=== PATIENT | female | born 1940 | race Caucasian/White ===

== ENCOUNTER 2017-08-25 21:39 | Inpatient (IN) | payer OTHER ==
[~2017-08-25] VITALS: Ht 154.9 cm; Wt 60.6 kg
[2017-08-25] MEDS ORDERED: FRS/40 PO (22:58)
[2017-08-25] MEDS ORDERED: LORA-741 PO (22:58)
[2017-08-25] MEDS ORDERED: TPRSR50 PO (22:58)
[2017-08-25] MEDS ORDERED: [UNRECOGNIZED DRUG - CODE] PO (22:58)
[2017-08-25] MEDS ORDERED: AMLO-114 PO (22:58)
--- NOTE | 2017-08-25 23:05 | EMERGENCY ROOM VISIT NOTE ---
History Report prepared by Too: Violette Masno Under the Supervision of: Dr. Alonzo Arreguin M.D. First contact with patient: 22:47 Chief Complaint: OTHER COMPLAINT Stated Complaint: WHEEZING, SWELLING OF LEGS; PARKINSONS History of Present Illness The patient is a 77 year old female who presents to the Emergency Room with complaints of swelling in her ankles beginning tonight. Per her family, the patient has had swelling in her legs for the last 4 weeks, and has recently had her blood pressure medication changed. Per her family, the patient has also been wheezing lately. The patient states that she is on Lasix and that she takes it twice daily. She denies headaches, neck pain, shortness of breath, chest pain, and abdominal pain. The patient denies a history of blood clots, and DVT's. The patient's family notes that her symptoms acutely worsened 48 hours ago. Source of History: patient, family Onset: tonight Position: ankle (bilateral) Quality: other (swelling) Associated Symptoms: + cough (wheezing), No headache, No neck pain, No chest pain, No SOB, No abdominal pain Review of Systems See HPI for pertinent positives & negatives. A total of 10 systems reviewed and were otherwise negative. Past Medical & Surgical Medical Problems: (1) Hypertension Family History No pertinent family history stated. Social History Smoking Status: Never Smoker Occupation Status: retired Current/Historical Medications Scheduled Amlodipine (Norvasc), 10 MG PO DAILY Furosemide (Lasix), 40 MG PO QAM Levodopa/Carbidopa (Carbidopa/Levodopa 10-100 mg), 1 TAB PO TID Lorazepam (Ativan), 0.5 MG PO HS Metoprolol Succinate (Metoprolol Succinate ER), 50 MG PO DAILY Allergies Coded Allergies: No Known Allergies (Unverified , 08/25/17) Physical Exam Vital Signs Date Time Temp Pulse Resp B/P (MAP) Pulse Ox O2 Delivery O2 Flow Rate FiO2 08/26/17 01:24 68 20 131/59 94 Room Air 08/25/17 23:55 68 20 137/78 97 Room Air 08/25/17 22:44 72 08/25/17 21:55 37.2 64 20 145/96 93 Room Air Physical Exam GENERAL: Patient is elderly appearing and in no acute distress. HEENT: No acute trauma, normocephalic atraumatic, mucous membranes moist, no nasal congestion, no scleral icterus. NECK: No stridor, no adenopathy, no meningismus, trachea is midline. LUNGS: Mild crackles and rales in the bilateral lower lungs. HEART: Regular rate and rhythm. No murmurs, rubs, gallops appreciated. ABDOMEN: Soft, nontender, bowel sounds positive, no masses appreciated, no peritonitis. BACK: No midline tenderness, no CVA tenderness EXTREMITIES: Normal motion all extremities, no cyanosis. 3+ pitting edema bilateral lower legs. NEUROLOGIC: Alert and oriented, no acute motor or sensory deficits, no focal weakness, cranial nerves grossly intact. Movement in face consistent with Parkinson's Disease. SKIN: No rash, no jaundice, no diaphoresis. Medical Decision & Procedures ER Provider Diagnostic Interpretation: X ray results are stated below per my interpretation. Chest X-Ray 1 view: Mild congestive finding bilaterally. Large heart. No pleural effusion. No infiltrate. No pneumothorax. Radiology results and stated below per my review and [facility]. US VENOUS BILATERAL LOWER EXTREMITIES: No evidence of deep vein thrombosis. Edema noted within the subcutaneous soft tissues. Laboratory Results 08/25/17 23:25 Red Blood Count 4.59, Mean Corpuscular Volume 88.7, Mean Corpuscular Hemoglobin 27.2, Mean Corpuscular Hemoglobin Concent 30.7, Mean Platelet Volume 10.4, Neutrophils (%) (Auto) 64.8, Lymphocytes (%) (Auto) 18.3, Monocytes (%) (Auto) 15.0, Eosinophils (%) (Auto) 1.1, Basophils (%) (Auto) 0.5, Neutrophils # (Auto ) 4.23, Lymphocytes # (Auto) 1.19, Monocytes # (Auto) 0.98, Eosinophils # (Auto ) 0.07, Basophils # (Auto) 0.03 08/25/17 23:25 Test 08/25/17 23:25 White Blood Count 6.52 K/uL (4.8-10.8) Red Blood Count 4.59 M/uL (4.2-5.4) Hemoglobin 12.5 g/dL (12.0-16.0) Hematocrit 40.7 % (37-47) Mean Corpuscular Volume 88.7 fL (80-100) Mean Corpuscular Hemoglobin 27.2 pg (25-34) Mean Corpuscular Hemoglobin Concent 30.7 g/dl (32-36) Platelet Count 227 K/uL (130-400) Mean Platelet Volume 10.4 fL (7.4-10.4) Neutrophils (%) (Auto) 64.8 % Lymphocytes (%) (Auto) 18.3 % Monocytes (%) (Auto) 15.0 % Eosinophils (%) (Auto) 1.1 % Basophils (%) (Auto) 0.5 % Neutrophils # (Auto) 4.23 K/uL (1.4-6.5) Lymphocytes # (Auto) 1.19 K/uL (1.2-3.4) Monocytes # (Auto) 0.98 K/uL (0.11-0.59) Eosinophils # (Auto) 0.07 K/uL (0-0.5) Basophils # (Auto) 0.03 K/uL (0-0.2) RDW Standard Deviation 48.9 fL (36.4-46.3) RDW Coefficient of Variation 15.3 % (11.5-14.5) Immature Granulocyte % (Auto) 0.3 % Immature Granulocyte # (Auto) 0.02 K/uL (0.00-0.02) Prothrombin Time 11.1 SECONDS (9.0-12.0) Prothromb Time International Ratio 1.0 (0.9-1.1) Activated Partial Thromboplast Time 26.6 SECONDS (21.0-31.0) Partial Thromboplastin Ratio 1.0 Anion Gap 9.0 mmol/L (3-11) Est Creatinine Clear Calc Drug Dose 51.6 ml/min Estimated GFR () 89.3 Estimated GFR (Non- 77.1 BUN/Creatinine Ratio 23.9 (10-20) Calcium Level 9.0 mg/dl (8.5-10.1) Magnesium Level 2.5 mg/dl (1.8-2.4) Total Bilirubin 0.3 mg/dl (0.2-1) Direct Bilirubin < 0.1 mg/dl (0-0.2) Aspartate Amino Transf (AST/SGOT) 11 U/L (15-37) Alanine Aminotransferase (ALT/SGPT) 15 U/L (12-78) Alkaline Phosphatase 92 U/L (45-117) Troponin I 0.046 ng/ml (0-0.045) Pro-B-Type Natriuretic Peptide 512 pg/ml (0-1800) Total Protein 7.2 gm/dl (6.4-8.2) Albumin 3.8 gm/dl (3.4-5.0) Laboratory results as reviewed by me. ECG Indication: weakness Rate (beats per minute): 73 Rhythm: normal sinus Findings: no acute ischemic change, no ectopy, other (poor baseline) ED Course 2300: The patient was evaluated in room A4B. A complete history and physical exam was performed. 0040: I checked on the patient and updated her on her results. 0145: Discussed the patient's case with Dr. Sorenson. The patient will be evaluated for further treatment and disposition. 0155: Upon reevaluation, the patient is resting. Discussed results and treatment plan with the patient. She verbalized understanding and agreement with the treatment plan. The patient will be evaluated for further management. Medical Decision Differential: DVT, CHF, Infectious, Lymphedema, Idiopathic, Trauma, amongst other pathologies entertained. 77 yr old female arrives for evaluation of bilateral leg edema. Worsening over last 4 weeks despite increasing lasix dosing to 40mg BID, however last 48 hours with worsening SHOB and coughing. Mild congestive failure by lung exam and cxr without hypoxia. EKG without acute ischemia. Mild elevation in Troponin of uncertain significance, though with no renal insufficiency it may be acs related , though by no means is she actively infarcting by current symptoms nor EKG. No evidence of need for heparin at this time as trop may just be baseline for her. Regardless she has failed rapidly increasing Lasix dosing after last few weeks and has had no cardiac work-up for this. Will bring in for cardiac rule out as well as further work-up of CHF. Patient stable without complaints throughout ED stay. Medication Reconcilliation Current Medication List: was personally reviewed by me Blood Pressure Screening Patient's blood pressure: Elevated blood pressure will be monitored by hospitalist Consults Time Called: 0100 Consulting Physician: Dr. Sorenson[place] Returned Call: 0145 Discussed the patient's case. The patient will be evaluated for further treatment and disposition. Impression Primary Impression: Congestive heart failure Additional Impression: Elevated troponin Scribe Attestation The scribe's documentation has been prepared under my direction and personally reviewed by me in its entirety. I confirm that the note above accurately reflects all work, treatment, procedures, and medical decision making performed by me. Departure Information Dispostion Being Evaluated By Hospitalist Referrals No Doctor, Assigned (PCP) Patient Instructions My [facility] Problem Qualifiers
[2017-08-25 23:40] LABS: BASO % 0.5 %; BASO ABS # 0.03 K/uL (0-0.2); COMPLETE YES; EOS % 1.1 %; HEMATOCRIT 40.7 % (37-47); IG% 0.3 %; LYMPH % 18.3 %; LYMPH ABS # 1.19 K/uL (1.2-3.4); MEAN CELL VOLUME 88.7 fL (80-100); MEAN CORPUSCULAR HEMOGLOBIN 27.2 pg (25-34); MEAN CORPUSCULAR HGB CONC 30.7 g/dl (32-36); MEAN PLATELET VOLUME 10.4 fL (7.4-10.4); NEUT % 64.8 %; PLATELET COUNT 227 K/uL (130-400); RED BLOOD COUNT 4.59 M/uL (4.2-5.4); WHITE BLOOD COUNT 6.52 K/uL (4.8-10.8)
[2017-08-25 23:58] LABS: BLOOD UREA NITROGEN 18 mg/dl (7-18); BUN/CREATININE RATIO 23.9 (10-20); CARBON DIOXIDE 28 mmol/L (21-32); CHLORIDE 107 mmol/L (98-107); CREATININE 0.74 mg/dl (0.60-1.20); GLUCOSE 92 mg/dl (70-99); MAGNESIUM 2.5 mg/dl (1.8-2.4); POTASSIUM 4.4 mmol/L (3.5-5.1); SODIUM 144 mmol/L (136-145)
[2017-08-26] VITALS (8 sets, daily range): BP systolic 122–179; BP diastolic 59–79; PULSE 64–78; TEMP 36.6–37; O2SAT 90–97; Ht 154.9 cm; Wt 60.6 kg
[2017-08-26 01:36] LABS: PROTHROMBIN TIME (PATIENT) 11.1 SECONDS (9.0-12.0)
[2017-08-26 01:45] LABS: ALKALINE PHOSPHATASE 92 U/L (45-117); ALT/SGPT 15 U/L (12-78); AST/SGOT 11 U/L (15-37)
[2017-08-26] MEDS ORDERED: ACETAMINOPHEN 325 MG TAB PO PRN (02:00)
[2017-08-26] MEDS ORDERED: POLYETHYLENE (MIRALAX) 17 GM PACK PO PRN (02:00)
[2017-08-26] MEDS ORDERED: ALUMINUM/MAGNESIUM/SIMETH (MAALOX MAX) 30 ML UDC PO PRN (02:00)
[2017-08-26] MEDS ORDERED: ONDANSETRON INJ 2 MG/ML 2 ML VIAL IV PRN (02:00)
[2017-08-26] MEDS ORDERED: MoRPHine SULFATE 2 MG/ML CARP IV PRN (02:00)
[2017-08-26] MEDS ORDERED: NITROGLYCERIN 0.4 MG SL PER TAB CHARGE SL PRN (02:00)
--- NOTE | 2017-08-26 02:11 | History and Physical ---
History & Physical Date & Time of Service: Aug 26, 2017 at 02:10 Chief Complaint: Wheezing, Swelling Of Legs; Parkinsons Primary Care Physician: Valencia Marshall M.D. History of Present Illness Source: patient, family This is a 77 yo f with a history of HTN and parkinson's that is presenting to us with lower extremity edema and wheezing. According to the daughter the patient started to suffer from lower extremity edema approx two weeks prior. She was seen by her PCP and the patient's Lasix was increased to 40 mg bid. She has had an increase in urination according to the daughter but no improvement in the swelling. The patient then started to suffer from wheezing starting yesterday and because of concern for possible respiratory problems the daughter brought the patient in. The patient does have some baseline dementia and is a very poor historian but currently denies any pain. The daughter denies any history of heart attack or stroke but there is family history of SC. Non smoker but was exposed to second hand smoke via . Past Medical/Surgical History Medical Problems: (1) Hypertension Status: Chronic Family History FH: myocardial infarction Social History Smoking Status: Never Smoker Smokeless Tobacco Use: No Alcohol Use: none Drug Use: none Marital Status: Housing status: lives with family Occupational Status: retired Immunizations History of Influenza Vaccine: Unknown History of Tetanus Vaccine?: Unknown History of Pneumococcal: Unknown History of Hepatitis B Vaccine: Unknown Multi-Drug Resistant Organisms History of MDRO: No Allergies Coded Allergies: No Known Allergies (Unverified , 08/25/17) Home Medications Scheduled Amlodipine (Norvasc), 10 MG PO DAILY Furosemide (Lasix), 40 MG PO QAM Levodopa/Carbidopa (Carbidopa/Levodopa 10-100 mg), 1 TAB PO TID Lorazepam (Ativan), 0.5 MG PO HS Metoprolol Succinate (Metoprolol Succinate ER), 50 MG PO DAILY Review of Systems unable to complete meaningful ROS because of dementia Physical Exam Vital Signs Date Time Temp Pulse Resp B/P (MAP) Pulse Ox O2 Delivery O2 Flow Rate FiO2 08/26/17 01:24 68 20 131/59 94 Room Air 08/25/17 23:55 68 20 137/78 97 Room Air 08/25/17 22:44 72 08/25/17 21:55 37.2 64 20 145/96 93 Room Air General Appearance: no apparent distress Head: normocephalic, atraumatic Eyes: normal inspection ENT: normal ENT inspection Neck: supple Respiratory/Chest: no respiratory distress, no accessory muscle use, + decreased breath sounds (bilat bases) Cardiovascular: regular rate, rhythm, + systolic murmur (3/6) Abdomen/GI: normal bowel sounds, non tender, soft, + distended (mildly) Back: no CVA tenderness Extremities/Musculoskelatal: no calf tenderness, + pedal edema (+4 bilat) Neurologic/Psych: alert, + pertinent finding (oriented to self only, resting tremor; cogwheel rigidity bilat) Skin: normal color, warm/dry, no rash Lymphatic: no adenopathy Diagnostics Laboratory Results Results Past 24 Hours Test 08/25/17 23:25 Range/Units White Blood Count 6.52 4.8-10.8 K/uL Red Blood Count 4.59 4.2-5.4 M/uL Hemoglobin 12.5 12.0-16.0 g/dL Hematocrit 40.7 37-47 % Mean Corpuscular Volume 88.7 80-100 fL Mean Corpuscular Hemoglobin 27.2 25-34 pg Mean Corpuscular Hemoglobin Concent 30.7 32-36 g/dl Platelet Count 227 130-400 K/uL Mean Platelet Volume 10.4 7.4-10.4 fL Neutrophils (%) (Auto) 64.8 % Lymphocytes (%) (Auto) 18.3 % Monocytes (%) (Auto) 15.0 % Eosinophils (%) (Auto) 1.1 % Basophils (%) (Auto) 0.5 % Neutrophils # (Auto) 4.23 1.4-6.5 K/uL Lymphocytes # (Auto) 1.19 1.2-3.4 K/uL Monocytes # (Auto) 0.98 0.11-0.59 K/uL Eosinophils # (Auto) 0.07 0-0.5 K/uL Basophils # (Auto) 0.03 0-0.2 K/uL RDW Standard Deviation 48.9 36.4-46.3 fL RDW Coefficient of Variation 15.3 11.5-14.5 % Immature Granulocyte % (Auto) 0.3 % Immature Granulocyte # (Auto) 0.02 0.00-0.02 K/uL Prothrombin Time 11.1 9.0-12.0 SECONDS Prothromb Time International Ratio 1.0 0.9-1.1 Activated Partial Thromboplast Time 26.6 21.0-31.0 SECONDS Partial Thromboplastin Ratio 1.0 Sodium Level 144 136-145 mmol/L Potassium Level 4.4 3.5-5.1 mmol/L Chloride Level 107 98-107 mmol/L Carbon Dioxide Level 28 21-32 mmol/L Anion Gap 9.0 3-11 mmol/L Blood Urea Nitrogen 18 7-18 mg/dl Creatinine 0.74 0.60-1.20 mg/dl Est Creatinine Clear Calc Drug Dose 51.6 ml/min Estimated GFR () 89.3 Estimated GFR (Non- 77.1 BUN/Creatinine Ratio 23.9 10-20 Random Glucose 92 70-99 mg/dl Calcium Level 9.0 8.5-10.1 mg/dl Magnesium Level 2.5 1.8-2.4 mg/dl Total Bilirubin 0.3 0.2-1 mg/dl Direct Bilirubin < 0.1 0-0.2 mg/dl Aspartate Amino Transf (AST/SGOT) 11 15-37 U/L Alanine Aminotransferase (ALT/SGPT) 15 12-78 U/L Alkaline Phosphatase 92 45-117 U/L Troponin I 0.046 0-0.045 ng/ml Pro-B-Type Natriuretic Peptide 512 0-1800 pg/ml Total Protein 7.2 6.4-8.2 gm/dl Albumin 3.8 3.4-5.0 gm/dl Diagnostic Radiology Venous doppler negative CXR: mild pulmonary congestion, cardiomegaly; difficult to discern if enlarged right atria vs enlarged aorta EKG HR 73, no ectopic beats, no ischemic changes Normal EKG Impression Assessment and Plan This is a 77 yo f that is suffering from LE swelling, wheezing and elevated troponin. Considering the very large size of the heart and difficult to discern if the atria is enlarged vs aorta will order a CT chest to r/o aortic aneurysm. Elevated troponin; possible acute on chronic diastolic failure vs SC - Tele admission - troponin trend - echo in am - Lasix PO BID has been changed to IV - I&O, daily weights and ashby - consider CVS consult based on result of CT chest HTN - Amlodipine held as could be contributing to the LE edema - IV Lasix bid and the PO held - metoprolol succ 50 mg daily Parkinson's - Continue SInemet DVT prophylaxis - heparin bid Attending Addendum: I have physically seen and examined this patient, have directed the resident's medical activities, and agree with the H&P as noted above with the following exceptions as noted. HEENT--PERRL, EOMI, mucous membranes and oropharynx dry. Neck--supple, no JVD or bruits, thyroid normal, trachea midline, no adenopathy. Heart--normal S1 and S2. Systolic murmur III/. No rubs or gallops. Lungs--decreased breath sounds at bases bilaterally, no respiratory distress, no accessory muscle use. Abdomen--normal bowel sounds and soft, nontender. Mildly distended and tympanitic Extremities--no cyanosis, clubbing. 3+ bilateral pretibial/pedal pitting edema. There are good distal pulses b/l. Dermatologic--normal skin turgor, normal color, warm and dry, no abnormal lymph nodes, no rash. Neurologic--cranial nerves II through XII grossly intact. Resting tremor. Bilateral cogwheel rigidity. Rheumatologic--normal range of motion. Psychiatric--normal affect. Assessment and Plan: Elevated troponin/lower extremity edema/hypertension-- The patient will be admitted to telemetry for serial cardiac enzymes, cardiac rhythm monitoring and a 2-D echocardiogram with Dopplers. CT dissection study is normal. Hold amlodipine for now. Continue metoprolol succinate 50 mg by mouth daily. Change Lasix to IV. Serial BMP and magnesium levels. Add LFTs to ED labs. Parkinson's-- Continue Sinemet. Level of Care Telemetry Advanced Directives Existing Advance Directive: No Existing Living Will: No Existing Power of Visitor Services Coordinator: No Resuscitation Status FULL RESUSCITATION VTE Prophylaxis VTE Risk Assessment Done? Y/N: Yes Risk Level: Moderate Given or contraindicated: Unfractionated heparin SQ Social Service Consult None Apply Additional Copies To Valencia Marshall M.D.
[2017-08-26] MEDS ORDERED: OPTIRAY 320 IV PRN (02:15)
[2017-08-26] MEDS ORDERED: FUROSEMIDE 40 MG/4 ML VIAL IV STA (02:39)
[2017-08-26] MEDS ORDERED: FUROSEMIDE INJ 40 MG in SYRINGE 0 ML IV STA (02:57)
[2017-08-26] MEDS ORDERED: PNEUMOCOCCAL ADMINISTRATION CHARGE ONE (04:30)
[2017-08-26] MEDS ORDERED: PNEUMOCOCCAL POLYSACCHARIDES 25 MCG/0.5 ML VIAL/SYR IM. ONE (04:30)
[2017-08-26] MEDS ORDERED: INFLUENZA ADMINISTRATION CHARGE ONE (04:30)
[2017-08-26] MEDS ORDERED: INFLUENZA VACCINE HIGH DOSE 65+ 0.5 ML SYR IM. ONE (04:30)
--- NOTE | 2017-08-26 06:43 | DIAGNOSTIC IMAGING REPORT ---
CHEST ONE VIEW PORTABLE CLINICAL HISTORY: Cough. Leg swelling. COMPARISON STUDY: No previous studies for comparison. FINDINGS: There is an air-containing retrocardiac density, consistent with a hiatal hernia. The heart is borderline enlarged. There is no overt failure. There is no focal pulmonary consolidation. There are no pleural effusions. IMPRESSION: Large hiatal hernia/intrathoracic stomach. No acute findings. Electronically signed by: Lawrence Hurley M.D. 08/26/2017 6:42 AM Dictated Date/Time: 08/26/2017 6:41 AM
[2017-08-26 07:06] LABS: BASO % 0.5 %; BASO ABS # 0.03 K/uL (0-0.2); COMPLETE YES; HEMATOCRIT 37.3 % (37-47); IG% 0.2 %; LYMPH % 17.4 %; LYMPH ABS # 0.98 K/uL (1.2-3.4); MEAN CELL VOLUME 88.2 fL (80-100); MEAN CORPUSCULAR HEMOGLOBIN 28.1 pg (25-34); MEAN CORPUSCULAR HGB CONC 31.9 g/dl (32-36); MEAN PLATELET VOLUME 9.9 fL (7.4-10.4); MONO % 14.8 %; NEUT % 65.1 %; PLATELET COUNT 192 K/uL (130-400); RED BLOOD COUNT 4.23 M/uL (4.2-5.4); WHITE BLOOD COUNT 5.62 K/uL (4.8-10.8)
--- NOTE | 2017-08-26 07:06 | DIAGNOSTIC IMAGING REPORT ---
ULTRASOUND VENOUS DOPPLER LWR EXT BILA CLINICAL HISTORY: Bilateral leg swelling COMPARISON STUDY: No previous studies for comparison. FINDINGS: Real-time and color flow Doppler imaging were performed. Flow was seen within the femoral, popliteal and calf veins with no intraluminal thrombus demonstrated. The saphenous vein is patent. IMPRESSION: No evidence of lower extremity DVT. Electronically signed by: Lawrence Hurley M.D. 08/26/2017 7:05 AM Dictated Date/Time: 08/26/2017 7:05 AM
--- NOTE | 2017-08-26 07:21 | DIAGNOSTIC IMAGING REPORT ---
CT ANGIOGRAM OF THE CHEST COMBO CLINICAL HISTORY: Atypical chest pain. Wheezing. COMPARISON STUDY: Chest x-ray dated 08/25/2017. TECHNIQUE: Before and following the IV administration of 116 cc of Optiray 320, CT angiogram of the chest was performed from the thoracic inlet to the upper abdomen utilizing the dissection protocol. Images are reviewed in the axial, sagittal, and coronal planes. 3-D MIPS images are created and assessed. IV contrast was administered without complication. A dose lowering technique was utilized adhering to the principles of ALARA. The examination is degraded by streak artifact from the patient's arms which could not be elevated above the chest as well as by motion artifact. CT DOSE: 667.37 mGy.cm FINDINGS: Thyroid: Imaged portions of the thyroid gland are normal in size and attenuation. Thoracic aorta: There is atherosclerotic calcification of the thoracic aorta, with is normal in caliber and demonstrates standard 3-vessel arch anatomy. No dissection is seen. Pulmonary vasculature: The pulmonary trunk is normal in caliber. There are no central filling defects identified in the pulmonary vessels to suggest pulmonary embolus. Note that this examination was not specifically protocoled to assess for pulmonary emboli. Heart: The heart is normal in size and configuration, and without pericardial effusion. The coronary arteries are densely calcified. Lungs and pleural spaces: Evaluation of the lung parenchyma is degraded by motion artifact. No airspace consolidation or pleural effusion is identified. Scarring versus atelectasis is seen at the lung bases. The trachea and central airways are clear. Mediastinum: There is no mediastinal lymphadenopathy. Karena: Clear. Axillae: There is no axillary lymphadenopathy. Upper abdomen: There is a large hiatal hernia, with the majority of the stomach located in the thoracic cavity. There is a 10 mm left renal cyst. Partially visualized upper abdominal viscera is otherwise within normal limits. Skeletal structures: The skeletal structures are osteopenic. Degenerative change and kyphoscoliosis are noted throughout the thoracic spine. No lytic or blastic bony lesions are seen. IMPRESSION: 1. Streak and motion artifact degraded examination. 2. There is no aneurysm or dissection seen involving the thoracic aorta. 3. The lungs are clear. 4. Large hiatal hernia. Electronically signed by: Silvino Avilez M.D. 08/26/2017 7:20 AM Dictated Date/Time: 08/26/2017 7:08 AM
[2017-08-26 07:24] LABS: BUN/CREATININE RATIO 19.1 (10-20); CALCIUM 8.6 mg/dl (8.5-10.1); CREATININE 0.66 mg/dl (0.60-1.20); POTASSIUM 3.9 mmol/L (3.5-5.1)
[2017-08-26] MEDS: CARBIDOPA/LEVODOPA 10/100MG TAB PO SCH ×3 (08:21→21:03)
[2017-08-26] MEDS: METOPROLOL SUCC 50MG EXT REL TAB PO SCH (08:28)
[2017-08-26] MEDS: HEPARIN SOD 5000 UNIT/0.5 ML CARP SQ SCH ×2 (08:41→21:03)
[2017-08-26] MEDS: FUROSEMIDE INJ 40 MG in SYRINGE 0 ML IV SCH ×3 (08:42→18:46)
--- NOTE | 2017-08-26 13:07 | ECHOCARDIOGRAM REPORT ---
*NOTICE TO RECEIVING [employer] This information is strictly Confidential and protected under [place] law. [place] law prohibits you from making any further disclosure of this information unless further disclosure is expressly permitted by the written consent of the person to whom it pertains or is authorized by law. A general authorization for the release of medical or other information is not sufficient for this purpose. Hospital accepts no responsibility if the information is made available to any other person, INCLUDING THE PATIENT. Interpretation Summary * Name: ELIS LATHAM Study Date: 08/26/2017 07:07 AM BP: 123/59 mmHg * Patient Location: [facility]\S\N276\S\2 HR: 65 * : 1940 (M/d/yyyy) Gender: Female Height: 61 in * Age: 77 yrs Ethnicity: CA Weight: 134 lb * Ordering Physician: Dannielle Flores * Referring Physician: Self, Referred * Performed By: Radha Blair RDCS * * Reason For Study: CHF * BSA: 1.6 m2 * Normal biventricular systolic function. * Normal chamber dimensions. * Trace tricuspid regurgitation. * Mildly elevated estimated right ventricular systolic pressure. * -- Conclusions -- * Aortic valve sclerosis mild, without significant aortic valvular stenosis. Procedure Details * A complete two-dimensional transthoracic echocardiogram was performed (2D, M-mode, Doppler and color flow Doppler). Left Ventricle * The left ventricle is normal in size. * There is normal left ventricular wall thickness. * Ejection Fraction = 60-65%. * The left ventricular wall motion is normal. Right Ventricle * The right ventricular systolic function is normal as assessed by tricuspid annular plane systolic excursion (TAPSE) (normal >1.5 cm). Atria * The left atrial size is normal. * Right atrial size is normal. * No ASD detected; PFO is not assessed. Mitral Valve * The mitral valve is normal. * There is no mitral valve stenosis. * There is no mitral regurgitation noted. Tricuspid Valve * The tricuspid valve is normal. * There is no tricuspid stenosis. * There is trace tricuspid regurgitation. * Right ventricular systolic pressure is elevated at 30-40mmHg. Aortic Valve * The aortic valve opens well. * Aortic valve sclerosis mild, without significant aortic valvular stenosis. * No aortic regurgitation is present. Pulmonic Valve * The pulmonic valve is not well seen, but is grossly normal. * There is no pulmonic valvular stenosis. * There is no pulmonic valvular regurgitation. Great Vessels * The aortic root is normal size. Pericardium/Pleural * There is no pericardial effusion. Great Vessels * Normal inferior vena cava diameter and respiratory variation suggests normal central venous pressure. MMode 2D Measurements and Calculations IVSd 0.84 cm IVSs 1.1 cm LVIDd 4.3 cm LVIDs 3.0 cm LVPWd 1.0 cm LVPWs 1.1 cm IVS/LVPW 0.82 FS 30.7 % EDV(Teich) 81.3 ml ESV(Teich) 33.7 ml EF(Teich) 58.6 % EDV(cubed) 77.4 ml ESV(cubed) 25.7 ml EF(cubed) 66.7 % % IVS thick 35.4 % % LVPW thick 8.9 % LV mass(C)d 128.4 grams LV mass(C)dI 80.6 grams/m\S\2 LV mass(C)s 97.3 grams LV mass(C)sI 61.1 grams/m\S\2 SV(Teich) 47.6 ml SI(Teich) 29.9 ml/m\S\2 SV(cubed) 51.6 ml SI(cubed) 32.4 ml/m\S\2 Ao root diam 2.7 cm Ao root area 5.6 cm\S\2 LA dimension 3.8 cm LA/Ao 1.4 LVAd ap4 24.2 cm\S\2 LVLd ap4 7.0 cm EDV(MOD-sp4) 69.4 ml LVAs ap4 12.7 cm\S\2 LVLs ap4 5.3 cm ESV(MOD-sp4) 26.8 ml EF(MOD-sp4) 61.4 % LVAd ap2 24.2 cm\S\2 LVLd ap2 7.4 cm EDV(MOD-sp2) 70.3 ml LVAs ap2 13.2 cm\S\2 LVLs ap2 5.7 cm ESV(MOD-sp2) 28.1 ml EF(MOD-sp2) 60.0 % SV(MOD-sp4) 42.6 ml SI(MOD-sp4) 26.7 ml/m\S\2 SV(MOD-sp2) 42.2 ml SI(MOD-sp2) 26.5 ml/m\S\2 Doppler Measurements and Calculations MV E max virgil 124.7 cm/sec MV A max virgil 111.6 cm/sec MV E/A 1.1 MV dec time 0.19 sec Ao V2 max 173.7 cm/sec Ao max PG 12.1 mmHg Ao max PG (full) 5.1 mmHg LV V1 max PG 7.0 mmHg LV V1 max 132.2 cm/sec TR max virgil 272.8 cm/sec
--- NOTE | 2017-08-26 18:35 | Family Medicine Progress Note ---
Progress Note Date of Service Aug 26, 2017. Subjective Pt evaluation today including: conversation w/ patient, physical exam, chart review, lab review, review of studies, conversation w/ executive talent acquisition consultant, review of inpatient medication list Voiding: ashby catheter in place Patient pleasantly confused, and unable to provide details re: past health. She denies chest pain, dyspnea, abdominal pain. She notes her legs have been swollen but have been unable to describe course of progression. All Other Systems: Reviewed and Negative Objective Vital Signs Date Time Temp Pulse Resp B/P (MAP) Pulse Ox O2 Delivery O2 Flow Rate FiO2 08/26/17 16:00 Room Air 08/26/17 15:24 36.6 65 20 172/75 (107) 96 Room Air 08/26/17 12:00 Room Air 08/26/17 11:30 37.0 64 18 133/75 (94) 93 Room Air 08/26/17 08:00 94 Room Air 08/26/17 07:19 37.0 65 18 123/59 (80) 94 Room Air 08/26/17 05:21 36.8 64 16 122/70 (87) 93 Room Air 08/26/17 03:35 Room Air 08/26/17 02:56 36.8 73 18 179/76 (110) 92 Room Air 08/26/17 02:27 69 20 153/66 95 Room Air 08/26/17 01:24 68 20 131/59 94 Room Air 08/25/17 23:55 68 20 137/78 97 Room Air 08/25/17 22:44 72 08/25/17 21:55 37.2 64 20 145/96 93 Room Air Physical Exam General Appearance: WD/WN, no apparent distress Eyes: normal inspection ENT: + pertinent finding (hard of hearing) Neck: supple Respiratory/Chest: no respiratory distress, no accessory muscle use, + decreased breath sounds (bibasilar), + rales Cardiovascular: regular rate, rhythm, no murmur, + systolic murmur Abdomen: normal bowel sounds, non tender, soft Extremities: + pedal edema, + swelling (+1, up to mid castillo) Neurologic/Psychiatric: alert, normal mood/affect, + disoriented Skin: normal color, warm/dry, no rash Laboratory Results Results Past 24 Hours Test 08/25/17 23:25 08/26/17 06:54 08/26/17 15:06 Range/Units White Blood Count 6.52 5.62 4.8-10.8 K/uL Red Blood Count 4.59 4.23 4.2-5.4 M/uL Hemoglobin 12.5 11.9 12.0-16.0 g/dL Hematocrit 40.7 37.3 37-47 % Mean Corpuscular Volume 88.7 88.2 80-100 fL Mean Corpuscular Hemoglobin 27.2 28.1 25-34 pg Mean Corpuscular Hemoglobin Concent 30.7 31.9 32-36 g/dl Platelet Count 227 192 130-400 K/uL Mean Platelet Volume 10.4 9.9 7.4-10.4 fL Neutrophils (%) (Auto) 64.8 65.1 % Lymphocytes (%) (Auto) 18.3 17.4 % Monocytes (%) (Auto) 15.0 14.8 % Eosinophils (%) (Auto) 1.1 2.0 % Basophils (%) (Auto) 0.5 0.5 % Neutrophils # (Auto) 4.23 3.66 1.4-6.5 K/uL Lymphocytes # (Auto) 1.19 0.98 1.2-3.4 K/uL Monocytes # (Auto) 0.98 0.83 0.11-0.59 K/uL Eosinophils # (Auto) 0.07 0.11 0-0.5 K/uL Basophils # (Auto) 0.03 0.03 0-0.2 K/uL RDW Standard Deviation 48.9 49.6 36.4-46.3 fL RDW Coefficient of Variation 15.3 15.3 11.5-14.5 % Immature Granulocyte % (Auto) 0.3 0.2 % Immature Granulocyte # (Auto) 0.02 0.01 0.00-0.02 K/uL Prothrombin Time 11.1 9.0-12.0 SECONDS Prothromb Time International Ratio 1.0 0.9-1.1 Activated Partial Thromboplast Time 26.6 21.0-31.0 SECONDS Partial Thromboplastin Ratio 1.0 Sodium Level 144 141 136-145 mmol/L Potassium Level 4.4 3.9 3.5-5.1 mmol/L Chloride Level 107 105 98-107 mmol/L Carbon Dioxide Level 28 30 21-32 mmol/L Anion Gap 9.0 6.0 3-11 mmol/L Blood Urea Nitrogen 18 13 7-18 mg/dl Creatinine 0.74 0.66 0.60-1.20 mg/dl Est Creatinine Clear Calc Drug Dose 51.6 59.7 ml/min Estimated GFR () 89.3 97.4 Estimated GFR (Non- 77.1 84.0 BUN/Creatinine Ratio 23.9 19.1 10-20 Random Glucose 92 95 70-99 mg/dl Calcium Level 9.0 8.6 8.5-10.1 mg/dl Magnesium Level 2.5 1.8-2.4 mg/dl Total Bilirubin 0.3 0.2-1 mg/dl Direct Bilirubin < 0.1 0-0.2 mg/dl Aspartate Amino Transf (AST/SGOT) 11 15-37 U/L Alanine Aminotransferase (ALT/SGPT) 15 12-78 U/L Alkaline Phosphatase 92 45-117 U/L Troponin I 0.046 0.050 0.045 0-0.045 ng/ml Pro-B-Type Natriuretic Peptide 512 0-1800 pg/ml Total Protein 7.2 6.4-8.2 gm/dl Albumin 3.8 3.4-5.0 gm/dl Assessment and Plan 77 yo F with Parkinson's and HTN, admitted with acutely worsening LE edema, wheezing and elevated troponin. CT chest negative for aneurysm or dissection but shows large hiatal hernia CHF exacerbation with Bilateral lower extremity edema - edema significantly improved since admission - Continue IV Lasix 40mgs bid. was on oral dose at home. - Strict I&O - net loss 5L today - keep Ashby in - Daily weights - Echo with elevated right heart pressure - check nocturnal pulse oximetry. Elevated troponin - likely due to CHF exacerbation - troponin peaked 0.05 and trended down. Echo showed normal systolic function (EF 60-65%) and chamber size. Trace TR. Mild aortic valve sclerosis. Mildly elevated RV systolic pressure. - EKG PRN chest pain HTN - Amlodipine held as could be contributing to the LE edema - IV Lasix 40mg BID - Metoprolol succ 50 mg daily Parkinson's - Continue Sinemet DVT prophylaxis - Heparin BID Continued [facility] stay due to: multiple IV medications needed Resident Tracking Resident Involvement: Resident Care Provided Care Provided: Adult Hospital Medicine Reviewed: Pt Seen/Exam by Me History leg swelling is improving Constitutional: denies: fever Respiratory: negative: short of breath Cardiovascular: denies chest pain General Appearance: no apparent distress Respiratory: lungs clear, no respiratory distress Cardiovascular: regular rate, rhythm Extremities: pedal edema (bilateral ) Neurologic/Psychiatric: alert, oriented x 3 Skin Characteristics: warm/dry Assessment/Plan Resident Physician Supervision Note: I independently interviewed and examined the patient and verified the monahan history and physical, reviewed labs and image studies, discussed the case with the resident Dr. Smith and agree with the findings and care plan.
[2017-08-26] MEDS ORDERED: LORAZEPAM 0.5 MG TAB PO SCH (21:00)
[2017-08-27 04:09] VITALS: BP 145/61; PULSE 60; TEMP 36.9; O2SAT 98
[2017-08-27 06:35] LABS: HEMATOCRIT 38.3 % (37-47); MEAN CELL VOLUME 88.5 fL (80-100); MEAN CORPUSCULAR HEMOGLOBIN 27.9 pg (25-34); MEAN CORPUSCULAR HGB CONC 31.6 g/dl (32-36); MEAN PLATELET VOLUME 10.3 fL (7.4-10.4); PLATELET COUNT 211 K/uL (130-400); RED BLOOD COUNT 4.33 M/uL (4.2-5.4); WHITE BLOOD COUNT 5.77 K/uL (4.8-10.8)
[2017-08-27 07:13] LABS: BUN/CREATININE RATIO 21.2 (10-20); CALCIUM 8.6 mg/dl (8.5-10.1); CREATININE 0.78 mg/dl (0.60-1.20); POTASSIUM 3.6 mmol/L (3.5-5.1)
[2017-08-27 07:32] VITALS: BP 127/71; PULSE 64; TEMP 36.9; O2SAT 97
[2017-08-27] MEDS: FUROSEMIDE INJ 40 MG in SYRINGE 0 ML IV SCH ×2 (08:11→17:00)
[2017-08-27] MEDS: CARBIDOPA/LEVODOPA 10/100MG TAB PO SCH ×2 (08:11→15:01)
[2017-08-27] MEDS: METOPROLOL SUCC 50MG EXT REL TAB PO SCH (08:11)
[2017-08-27] MEDS: HEPARIN SOD 5000 UNIT/0.5 ML CARP SQ SCH (08:21)
[2017-08-27 11:17] VITALS: BP 129/63; PULSE 70; TEMP 36.3; O2SAT 95
[2017-08-27 15:07] VITALS: BP 118/69; PULSE 58; TEMP 36.9; O2SAT 92
--- NOTE | 2017-08-27 15:55 | Discharge Instructions ---
Discharge Instructions Date of Service Aug 27, 2017. Admission Reason for Admission: Congestive Heart Failure,Elevated Troponin Discharge Discharge Diagnosis / Problem: LE edema secondary to dCHF Discharge Goals Goal(s): Decrease discomfort, Improve function, Diagnostic testing, Therapeutic intervention Activity Recommendations Activity Limitations: resume your previous activity . Instructions / Follow-Up Instructions / Follow-Up You were seen ins hospital for worsening lower leg edema. For this you were given an IV equivalent of the Lasix medication you take at home. This helped to significantly reduce the swelling. On discharge, we recommend continuing to take the Lasix daily. However, if you note that there is worsening swelling of the legs, this dose may be repeated in the afternoon. If swelling continues to worsen over the subsequent 2-3 days, it is recommended that medical care is sought for further advice. Her echo showed early evidence of diastolic congestion of the heart (mildly high right sided pressures). This coupled with a high salt diet can lead to edema of the legs. As such it is pertinent to maintain a low salt diet (less than 2 grams daily and less than 400mg at any meal, ideally). Safe ambulation (with home PT and OT) may also help to reduce swelling. On discharge, the blood pressure medication, amlodopine has also been held. This medication may sometime contribute to lower leg swelling. It is recommended that the patient make a follow up appointment with PCP in 1-2 weeks to recheck blood pressure and discuss starting a anti-hypertensive medication of warranted. Please continue all other medications as before. Thank you for allowing us to participate in your care. Current Hospital Diet Patient's current hospital diet: AHA Diet (Heart Healthy), Low Sodium Diet (2gm Na) Discharge Diet Recommended Diet: AHA Diet (Heart Healthy), Low Sodium Diet (2gm Na) Pending Studies Studies pending at discharge: no Medical Emergencies . Who to Call and When: Medical Emergencies: If at any time you feel your situation is an emergency, please call 911 immediately. . Non-Emergent Contact Non-Emergency issues call your: Primary Care Provider . . "Provider Documentation" section prepared by Beba Smith. . VTE Core Measure Inpt VTE Proph given/why not?: Unfractionated heparin SQ Resident Tracking Resident Involvement: Resident Care Provided Care Provided: Adult [facility] Medicine
--- NOTE | 2017-08-27 15:56 | Discharge Summary ---
Discharge Summary Date of Service Aug 27, 2017. Discharge Summary Admission Date: Aug 26, 2017 at 01:57 Discharge Date: Aug 27, 2017 Discharge Disposition: Home with services Principal Diagnosis: LE edema secondary to dCHF Immunizations: Have You Had Influenza Vaccine: Unknown History of Tetanus Vaccine?: Unknown History of Pneumococcal: Unknown History of Hepatitis B Vaccine: Unknown Medication Reconciliation Continued Medications: Furosemide (Lasix) 40 Mg Tab 40 MG PO QAM, TAB MAY TAKE ADDITIONAL DOSE FOR INCREASED EDEMA Levodopa/Carbidopa (Carbidopa/Levodopa 10-100 mg) 1 Tab Tab 1 TAB PO TID Lorazepam (Ativan) 0.5 Mg Tab 0.5 MG PO HS, TAB Metoprolol Succinate (Metoprolol Succinate ER) 50 Mg Tabcr 50 MG PO DAILY Discontinued Medications: Amlodipine (Norvasc) 10 Mg Tab 10 MG PO DAILY, TAB Hospital Course 77 yo F with Parkinson's and HTN, admitted with acutely worsening LE edema, wheezing and elevated troponin. CT chest negative for aneurysm or dissection but shows large hiatal hernia Bilateral lower extremity edema- significantly improved since admission - Lasix PO 40mg BID has been changed to IV - Strict I&O - net loss 5L today - keep Ojeda in - Daily weights Elevated troponin; possible acute on chronic diastolic failure vs GA - troponin peaked 0.05 and trended down. Echo showed normal systolic function (EF 60-65%) and chamber size. Trace TR. Mild aortic valve sclerosis. Mildly elevated RV systolic pressure. - EKG PRN chest pain HTN - Amlodipine held as could be contributing to the LE edema - IV Lasix 40mg BID - Metoprolol succ 50 mg daily Parkinson's - Continue Sinemet DVT prophylaxis - Heparin BID Total Time Spent: Less than 30 minutes This includes examination of the patient, discharge planning, medication reconciliation, and communication with other providers. Discharge Instructions Please refer to the electronic Patient Visit Report (Discharge Instructions) for additional information.
[2017-08-27 16:43] VITALS: BP 118/69; PULSE 58; TEMP 36.9; O2SAT 92
== END 2017-08-27 17:25 | disposition home health service (06) | DRG 293 ==
LOC: EDBD 21:41 → C.EDB 21:41 → EDSEX 21:41 → C.MED 08-26 01:57 → ENRESERV 08-26 02:18 → C.MED 08-26 08:09
PROVIDERS: ADMIT Hospitalist; ATTEND Family Medicine
DX: I50.33 Acute on chronic diastolic (congestive) heart failure (principal); I10 Essential (primary) hypertension; R60.0 Localized edema; G20 Parkinson's disease

== ENCOUNTER 2018-11-08 11:31 | Inpatient (IN) ==
[2018-11-08] MEDS ORDERED: ALBUT/IPRATROP 3MG/0.5MG NEB 3 ML VIAL ONE (12:02)
[2018-11-08] MEDS ORDERED: ALBUT/IPRATROP 3MG/0.5MG NEB 3 ML VIAL INH STA (12:14)
[2018-11-08 12:27] LABS: Basophils # (auto) 0.01 K/uL (0-0.2); Basophils % (auto) 0.2 %; Hematocrit (blood only) 43.8 % (37-47); Hemoglobin 13.4 g/dL (12.0-16.0); Immature Granulocytes # (auto) 0.02 K/uL (0.00-0.02); Immature Granulocytes % (auto) 0.4 %; Lymphocytes # (auto) 0.36 K/uL (1.2-3.4); Mean Corpuscular Hgb Conc 30.6 g/dL (32-36); Mean Corpuscular Volume 91.3 fL (80-100); Monocytes # (auto) 0.39 K/uL (0.11-0.59); Monocytes % (auto) 8.7 %; Neutrophils # (auto) 3.71 K/uL (1.4-6.5); Neutrophils % (auto) 82.7 %; Platelet Count 175 K/uL (130-400); RDW Coefficient of Variation 15.4 % (11.5-14.5); RDW Standard Deviation 51.9 fL (36.4-46.3); White Blood Count 4.49 K/uL (4.8-10.8)
[2018-11-08 12:35] LABS: INR 1.1 (0.9-1.1); Partial Thromboplastin Ratio 0.9; Partial Thromboplastin Time 24.3 Seconds (21.0-31.0); Prothrombin Time 10.9 Seconds (9.0-12.0)
[2018-11-08 12:36] LABS: Alanine Aminotransferase 15 U/L (12-78); Albumin Level 3.5 gm/dl (3.4-5.0); Aspartate Aminotransferase 10 U/L (15-37); BUN Creatinine Ratio 26.6 (10-20); Blood Urea Nitrogen 19 mg/dl (7-18); Calcium 8.5 mg/dl (8.5-10.1); Carbon Dioxide 30 mmol/L (21-32); Chloride 107 mmol/L (98-107); Est GFR (African American) 94.8; Est GFR (Non-African American) 81.8; Glucose 112 mg/dl (70-99); Potassium 3.6 mmol/L (3.5-5.1); Sodium 144 mmol/L (136-145)
--- NOTE | 2018-11-08 12:47 | XRay Report ---
XR chest 1V portable HISTORY: 78 years-old Female Dyspnea acute shortness of breath COMPARISON: Chest radiograph 08/25/2017, CTA chest 08/26/2017 TECHNIQUE: Portable AP view of the chest FINDINGS: Cardiac silhouette is enlarged, unchanged. Calcification the thoracic aortic arch. No pneumothorax, p leural effusion, focal airspace consolidation or overt pulmonary edema. Moderate sized hiatal hernia. Degenerative changes of the shoulders and spine. IMPRESSION: 1. Cardiomegaly without overt pulmonary edema. 2. Moderate sized hiatal hernia. The above report was generated using voice recognition software. It may contain grammatical, syntax o r spelling errors. Electronically signed by: Nick Vasquez M.D. 11/08/2018 12:45 PM
[2018-11-08 13:00] LABS: Albumin Globulin Ratio 0.9 (0.9-2); Alkaline Phosphatase 85 U/L (45-117); Bilirubin,Total 0.3 mg/dl (0.2-1); Globulin 3.8 gm/dl (2.5-4.0); Total Protein 7.3 gm/dl (6.4-8.2); Troponin I 0.057 ng/ml (0-0.045)
[2018-11-08 13:17] LABS: Influenza A virus by PCR Neg for Influ A (Neg); Influenza B virus by PCR Neg for Influ B (Neg)
--- NOTE | 2018-11-08 14:38 | History & Physical Report ---
Date of Service November 08, 2018 Assessment & Plan (1) Acute respiratory failure with hypoxia: - This is likely due to acute bronchitis vs viral pneumonia - Per records she desaturated to 88% however per nursing staff she had significant labored breathing - Currently on BiPAP with less labored breathing and likely can wean O2 as tolerated - due to nasal congestion may benefit from oxymask initially - Prednisone 40 mg IV Q6H and Duonebs DAHIANA - Will continue Zpak - Zithromax 250 mg can treat for an additional 2 days - Mucinex BID; Nasal saline - Presentation supports bronchitis but if no improvement will place CTA Present on Admission?: Yes (2) Acute bronchitis: - Treatment as above Present on Admission?: Yes (3) Elevated troponin: - This is likely demand ischemia given hypoxia and work of breathing - No ischemic findings on EKG and denies CP - Serial cardiac enzymes Present on Admission?: Yes (4) Hypertension: - Stable - Toprol XL 50 mg daily Present on Admission?: Yes (5) Parkinson disease: - Family reports she is prescribed Sinemet TID however was having insomnia due to taking it this way - Currently only dosing daily and will continue Present on Admission?: Yes (6) Insomnia: - Ativan 0.5 mg daily Present on Admission?: Yes History of Present Illness Chief Complaint: Wheezing Primary Care Provider: Brigette Sim PA-C Ms. Palacios is a 78 y/o female with PMHx of HTN and Parkinsons who presents to the ED c/o wheezing and SOB starting on Friday. HPI largely obtained from the daughter at bedside as patient is on BiPAP. Daughter states she started getting ill on Neema. Mostly complaining of wheezing and shortness of breath. She does occasionally have a productive cough of yellow sputum. She has also complained of nasal congestion during this time. They deny that she has been complaining of fever/chills. Due to not seeing much improvement they presented to [facility]. They were told this was likely a viral pneumonia and prescribed a Ventolin inhaler, Prednisone, and a Zpak. Daughter states she really hasn't noticed much change and feels that she looks more ill and the wheezing is progressive. They also note she appeared to be hallucinating last night and talking about the past, as well seems to be more talkative then normal. Possibly induced by steroids/albuterol? Family also notes she has insomnia and her night time ativan no longer helps. Patient feels that her breathing may be a bit better and does not like the BiPAP machine. She is normally not on oxygen therapy at home. Family denies issues with water retention or swelling of the legs. She is on Lasix for management. She has a mildly elevated troponin of 0.057. She denies CP. No evidence of ischemia on EKG. She is afebrile and without leukocytosis. Allergies Allergy/AdvReac Type Severity Reaction Status Date / Time No Known Allergies Allergy Unverified 11/08/18 12:06 Home Medications Home Medications Medication Instructions Recorded Confirmed Type albuterol sulfate [Ventolin HFA] 2 puff INHALATION Q4H 11/08/18 11/08/18 History azithromycin [Zithromax Z-Joe] 250 mg PO DIRECTED 11/08/18 11/08/18 History carbidopa-levodopa 1 tab PO DAILY 11/08/18 11/08/18 History furosemide 40 mg PO DAILY 11/08/18 11/08/18 History lorazepam 0.5 mg PO HS 11/08/18 11/08/18 History metoprolol succinate 50 mg PO DAILY 11/08/18 11/08/18 History prednisone 20 mg PO DAILY 11/08/18 11/08/18 History Past Med/Surg History Medical History Viral pneumonia H/O weakness Acute respiratory failure with hypoxia Essential hypertension Parkinson disease Family History Other Family history non-contributory Social History Current Living Situation: Alone Other Information That Helps Us Care for You: No Feels Safe at Home: Yes Safety Concerns: Feels Safe At This Time Smoking Status: Never smoker Do You Dip or Chew Tobacco: No Hx Alcohol Use: No Hx Substance Use: No Beliefs That Will Affect Care: None Preferred Language: Icelandic Communication Ability: confused Mobile Phlebotomist Required: No Review of Systems Constitutional: + fatigue; no fever and no chills Eyes: + problem reported (watery eyes) Ear, Nose, Mouth, Throat: + nasal congestion; no sore throat Respiratory: + cough, + dyspnea, + sputum production and + wheezing Cardiovascular: no chest pain, no orthopnea, no edema and no calf pain Gastrointestinal: no abdominal pain, no nausea, no vomiting, no constipation and no diarrhea/loose stools Genitourinary (Female): no dysuria Musculoskeletal: no swelling Integumentary: no rash Neurologic: + tremor(s) Physical Exam 2 Vital Signs (Past 24 Hours): Last Vital Signs Temp 37.5 C 11/08/18 11:32 Pulse 83 11/08/18 12:55 Resp 27 H 11/08/18 12:55 BP 146/86 H 11/08/18 11:43 Pulse Ox 95 11/08/18 12:55 Constitutional: well developed, well nourished and + ill appearing; no acute distress Eyes: + anicteric sclerae ENMT: Ears: + hearing impairment Neck: trachea midline Respiratory: + labored breathing (mild with BiPAP on) and + cough Auscultation: + diminished lung sounds and + wheezes Cardiovascular: Rate/Rhythm: regular rate and regular rhythm Extremities: no pedal edema and no edema Gastrointestinal (Abdomen): Inspection/Auscultation: normal bowel sounds Percussion/Palpation: abdomen soft; abdomen nontender Skin: no rashes, warm and dry Neurologic: moves all extremities Motor/Sensory: + tremor Psychiatric: Orientation: alert Results & Data Diagnostic Findings XR chest 1V portable FINDINGS: Cardiac silhouette is enlarged, unchanged. Calcification the thoracic aortic arch. No pneumothorax, pleural effusion, focal airspace consolidation or overt pulmonary edema. Moderate sized hiatal hernia. Degenerative changes of the shoulders and spine. IMPRESSION: 1. Cardiomegaly without overt pulmonary edema. 2. Moderate sized hiatal hernia. Code Status & VTE Plan VTE Prophylaxis Plan VTE Prophylaxis will be ordered: Yes Supervising Physician Co-Signing Physician Notes Attending note: patient seen and examined with Arabella BOSTON I agree with her HPI, history, exam, ROS and A/P. I personally reviewed the labs and imaging findings. patient seen on the floor, she had been titrated off of bipap already, breathing comfortably on oxymask lungs with rhonchi and wheezing bilaterally - Acute bronchitis with acute hypoxic respiratory failure treat with nebulizers, steroids, antibiotics titrate oxygen as tolerated, already off of bipap for full details refer to H&P _ (1) Acute bronchitis Bronchitis organism: unspecified organism Qualified Code(s): J20.9 - Acute bronchitis, unspecified (2) Hypertension Hypertension type: essential hypertension Qualified Code(s): I10 - Essential (primary) hypertension
--- NOTE | 2018-11-08 14:41 | Emergency Department Note ---
Entered by Holly Mccormack acting as a scribe for History of Present Illness General Chief complaint: Respiratory Problems Stated complaint: VIRAL PNEUMONIA, WHEEZING, HALLUCINATING Source: patient and family (daughter) Mode of arrival: ambulatory Limitations: no limitations History of Present Illness Onset (ago): day(s) 5 Location: chest Pain Consistency: + other (worsening) Quality: + other (wheezing) Associated symptoms: + other (The patient denies abdominal pain); no chest pain , no fever/chills (The patient denies fever) and no nausea/vomiting (The patient denies vomiting) The patient is an 78 year old female who presents to the ED with complaints of respiratory problems that worsened last night. The patient presents with her daughter. Per daughter, 5 days ago the patient started becoming weak and wheezing. She notes that she took the patient to a hospital in [place] on 11/06/2018 for worsening weakness. She states that the patient was put on Zithromax and Prednisone after she was diagnosed with viral pneumonia. She states that the patient started hallucinating about the past last night. She was extremely talkative and discussing random things. Per daughter, the patient complained about abdominal pain last night that resolved after a bowel movement. The patient denies fever, vomiting, chest pain, and abdominal pain. Per daughter, the patient has difficulty hearing. Home Medications Home Medications Medication Instructions Recorded Confirmed Type albuterol sulfate [Ventolin HFA] 2 puff INHALATION Q4H 11/08/18 11/08/18 History azithromycin [Zithromax Z-Joe] 250 mg PO DIRECTED 11/08/18 11/08/18 History carbidopa-levodopa 1 tab PO DAILY 11/08/18 11/08/18 History furosemide 40 mg PO DAILY 11/08/18 11/08/18 History lorazepam 0.5 mg PO HS 11/08/18 11/08/18 History metoprolol succinate 50 mg PO DAILY 11/08/18 11/08/18 History prednisone 20 mg PO DAILY 11/08/18 11/08/18 History Allergies Allergy/AdvReac Type Severity Reaction Status Date / Time No Known Allergies Allergy Unverified 11/08/18 12:06 Past Med/Surg History Medical History Viral pneumonia H/O weakness Social History Feels Safe at Home: Yes Smoking Status: Unknown if ever smoked Preferred Language: Greenlandic Hearing Ability: Hard of Hearing Review of Systems See HPI for pertinent positives & negatives. and A total of 10 systems reviewed and were otherwise negative Physical Exam Vital Signs Vital Signs - 24 hr 11/08/18 11:32 11/08/18 11:43 11/08/18 12:01 Temperature 37.5 C Temperature Source Oral Sepsis Recent Fever Within 48 Hours Yes Sepsis New/Unexplained Change in Mental Status Yes Sepsis Action Taken by Nursing No Action Required Pulse Rate 81 75 74 Pulse Rate [Finger] Respiratory Rate 28 H Respiratory Effort / Characteristics Blood Pressure 159/83 H 146/86 H Blood Pressure Mean 108 106 Pulse Oximetry 91 97 97 Oxygen Delivery Method Room Air Oxygen Flow Rate Fraction of Inspired Oxygen 11/08/18 12:10 11/08/18 12:20 11/08/18 12:28 Temperature Temperature Source Sepsis Recent Fever Within 48 Hours Sepsis New/Unexplained Change in Mental Status Sepsis Action Taken by Nursing Pulse Rate 74 75 Pulse Rate [Finger] Respiratory Rate 25 H 26 H Respiratory Effort / Characteristics Blood Pressure Blood Pressure Mean Pulse Oximetry 100 100 92 Oxygen Delivery Method Nasal Cannula Oxygen Flow Rate 2 Fraction of Inspired Oxygen 11/08/18 12:30 11/08/18 12:40 11/08/18 12:50 Temperature Temperature Source Sepsis Recent Fever Within 48 Hours Sepsis New/Unexplained Change in Mental Status Sepsis Action Taken by Nursing Pulse Rate 77 85 84 Pulse Rate [Finger] Respiratory Rate 28 H 27 H 35 H Respiratory Effort / Characteristics Blood Pressure Blood Pressure Mean Pulse Oximetry 100 99 98 Oxygen Delivery Method Oxygen Flow Rate Fraction of Inspired Oxygen 11/08/18 12:54 11/08/18 12:55 Temperature Temperature Source Sepsis Recent Fever Within 48 Hours Sepsis New/Unexplained Change in Mental Status Sepsis Action Taken by Nursing Pulse Rate 83 Pulse Rate [Finger] 83 Respiratory Rate 27 H 27 H Respiratory Effort / Characteristics Spontaneous Spontaneous Blood Pressure Blood Pressure Mean Pulse Oximetry 95 95 Oxygen Delivery Method BiPAP Oxygen Flow Rate Fraction of Inspired Oxygen 50 50 Constitutional: Vital signs reviewed. Respiratory distress with accessory muscle use and retractions. Eyes: Pupils are equal round reactive to light. Conjunctiva are noninjected. ENT: Pharynx is clear without erythema or exudate. Mucous membranes are moist. Neck supple without meningeal signs. Respiratory: Diffuse wheezing bilaterally on respiratory exam. Breath sounds are equal bilaterally. Cardiovascular: Regular rate and rhythm. No rubs or gallops. GI: Soft, nondistended and nontender. Bowel sounds are present. Musculoskeletal: No peripheral edema. No lower extremity tenderness. Integumentary: No cyanosis. Neurological: The patient is awake and alert. Hard of hearing. Psychiatric: Not anxious appearing. Course 1209: Past medical records reviewed. The patient was evaluated in room A3, and a complete history and physical examination were performed. 1328: I reevaluated the patient. Her breathing is improved, but she is still wheezing. I discussed the test results with the patient and family. 1334: I reviewed the patient's case with Dr. Drake Hospitalist -[facility]. He will evaluate the patient for further management. 1440: Patient is continued on BiPAP with a O2 saturation of 98%. Assessed by hospitalist group. Repeat EKG per my interpretation shows no acute ischemia. Administered Medications Discontinued Medications Albuterol (Duoneb) Confirm Administered Dose 3 ml .ROUTE .STK-MED ONE Stop: 11/08/18 12:03 Last Admin: 11/08/18 12:08 Dose: 3 ml Albuterol (Duoneb) 12 ml INH ONE STA Stop: 11/08/18 12:15 Last Admin: 11/08/18 12:53 Dose: 12 ml Medical Decision Making Differential Diagnosis Differential Diagnoses Include: COPD, pneumonia, ARDS, respiratory failure, viral syndrome, bronchospasm. Medical Records Attestation: I reviewed the patient's medical records. Home Medications Current Medication List: was personally reviewed by me Laboratory Data Attestation: I reviewed the patient's lab results. Result diagrams: 11/08/18 11:58 11/08/18 11:58 Lab Results 11/08/18 11/08/18 11/08/18 Range/Units 11:58 11:58 11:58 WBC 4.49 L (4.8-10.8) K/uL RBC 4.80 (4.2-5.4) M/uL Hgb 13.4 (12.0-16.0) g/dL Hct 43.8 (37-47) % MCV 91.3 (80-100) fL MCH 27.9 (25-34) pg MCHC 30.6 L (32-36) g/dL RDW Std Deviation 51.9 H (36.4-46.3) fL RDW Coeff of Tamera 15.4 H (11.5-14.5) % Plt Count 175 (130-400) K/uL MPV 11.0 H (7.4-10.4) fL Immature Gran % (Auto) 0.4 % Neut % (Auto) 82.7 % Lymph % (Auto) 8.0 % [place] % (Auto) 8.7 % Eos % (Auto) 0.0 % Baso % (Auto) 0.2 % Immature Gran # (Auto) 0.02 (0.00-0.02) K/uL Neut # (Auto) 3.71 (1.4-6.5) K/uL Lymph # (Auto) 0.36 L (1.2-3.4) K/uL [place] # (Auto) 0.39 (0.11-0.59) K/uL Eos # (Auto) 0.00 (0-0.5) K/uL Baso # (Auto) 0.01 (0-0.2) K/uL PT 10.9 (9.0-12.0) Seconds INR 1.1 (0.9-1.1) APTT 24.3 (21.0-31.0) Seconds PTT Ratio 0.9 Sodium 144 (136-145) mmol/L Potassium 3.6 (3.5-5.1) mmol/L Chloride 107 (98-107) mmol/L Carbon Dioxide 30 (21-32) mmol/L Anion Gap 7.0 (3-11) BUN 19 H (7-18) mg/dl Creatinine 0.70 (0.6-1.2) mg/dl Est Cr Clr Drug Dosing Not Reportable Est GFR ( Amer) 94.8 Est GFR (Non-Af Amer) 81.8 BUN/Creatinine Ratio 26.6 H (10-20) Glucose 112 H (70-99) mg/dl Calcium 8.5 (8.5-10.1) mg/dl Total Bilirubin 0.3 (0.2-1) mg/dl AST 10 L (15-37) U/L ALT 15 (12-78) U/L Alkaline Phosphatase 85 (45-117) U/L Troponin I 0.057 H* (0-0.045) ng/ml Total Protein 7.3 (6.4-8.2) gm/dl Albumin 3.5 (3.4-5.0) gm/dl Globulin 3.8 (2.5-4.0) gm/dl Albumin/Globulin Ratio 0.9 (0.9-2) Influenza Type A (PCR) (Neg) Influenza Type B (PCR) (Neg) 11/08/18 Range/Units 12:25 WBC (4.8-10.8) K/uL RBC (4.2-5.4) M/uL Hgb (12.0-16.0) g/dL Hct (37-47) % MCV (80-100) fL MCH (25-34) pg MCHC (32-36) g/dL RDW Std Deviation (36.4-46.3) fL RDW Coeff of Tamera (11.5-14.5) % Plt Count (130-400) K/uL MPV (7.4-10.4) fL Immature Gran % (Auto) % Neut % (Auto) % Lymph % (Auto) % [place] % (Auto) % Eos % (Auto) % Baso % (Auto) % Immature Gran # (Auto) (0.00-0.02) K/uL Neut # (Auto) (1.4-6.5) K/uL Lymph # (Auto) (1.2-3.4) K/uL [place] # (Auto) (0.11-0.59) K/uL Eos # (Auto) (0-0.5) K/uL Baso # (Auto) (0-0.2) K/uL PT (9.0-12.0) Seconds INR (0.9-1.1) APTT (21.0-31.0) Seconds PTT Ratio Sodium (136-145) mmol/L Potassium (3.5-5.1) mmol/L Chloride (98-107) mmol/L Carbon Dioxide (21-32) mmol/L Anion Gap (3-11) BUN (7-18) mg/dl Creatinine (0.6-1.2) mg/dl Est Cr Clr Drug Dosing Est GFR ( Amer) Est GFR (Non-Af Amer) BUN/Creatinine Ratio (10-20) Glucose (70-99) mg/dl Calcium (8.5-10.1) mg/dl Total Bilirubin (0.2-1) mg/dl AST (15-37) U/L ALT (12-78) U/L Alkaline Phosphatase (45-117) U/L Troponin I (0-0.045) ng/ml Total Protein (6.4-8.2) gm/dl Albumin (3.4-5.0) gm/dl Globulin (2.5-4.0) gm/dl Albumin/Globulin Ratio (0.9-2) Influenza Type A (PCR) Neg for Influ A (Neg) Influenza Type B (PCR) Neg for Influ B (Neg) Imaging Data Radiologist's Impression: Radiology results as stated below per my review and the radiologist's interpretation: XR chest 1V portable HISTORY: 78 years-old Female Dyspnea acute shortness of breath COMPARISON: Chest radiograph 08/25/2017, CTA chest 08/26/2017 TECHNIQUE: Portable AP view of the chest FINDINGS: Cardiac silhouette is enlarged, unchanged. Calcification the thoracic aortic arch. No pneumothorax, pleural effusion, focal airspace consolidation or overt pulmonary edema. Moderate sized hiatal hernia. Degenerative changes of the shoulders and spine. IMPRESSION: 1. Cardiomegaly without overt pulmonary edema. 2. Moderate sized hiatal hernia. The above report was generated using voice recognition software. It may contain grammatical, syntax or spelling errors. Electronically signed by: Nick Vasquez M.D. 11/08/2018 12:45 PM Dictated: 11/08/18 1244 Transcribed: 11/08/18 1244 ECG Data Attestation: I personally reviewed and interpreted this ECG as follows: Indication: back/shoulder pain and SOB/dyspnea Rate (beats per minute): 84 Rhythm: normal sinus Findings: + other (artifact in the limb leads ); no ST elevation Additional Comments: Repeat twelve-lead EKG at 1327 demonstrates normal sinus rhythm rate is [address] elevations no PVCs. Indication is elevated troponin Blood Pressure Blood Pressure Findings: Elevated blood pressure Blood Pressure Disposition: Referred to patients primary care provider MDM Narrative I did perform a limited focused review of portions of the patient's old chart on the electronic medical record. The patient has had no recent pertinent visits to this hospital. I did evaluate the patient as noted above. The patient is presenting in respiratory distress. IV access was established. The patient was placed on a continuous alarm security or surveillance monitor. She is hypoxemic and was placed on oxygen. I did order and personally review the patient's 12-lead EKG and chest x-ray as described above. Twelve-lead EKG does not demonstrate any acute ischemia. Chest x-ray does not demonstrate a pneumonia. I did order and review the patient's blood work as noted in the electronic medical record. Her troponin is very slightly elevated. She denies any chest pain. Repeat twelve-lead EKG per my interpretation shows no acute ischemia. Her white blood cell count is slightly low. Rapid influenza testing is negative. I did treat the patient with an hour-long continuous DuoNeb. She was also placed on BiPAP after which her oxygenation improved significantly. I did reassess the patient as above. I did recommend hospitalization for further care and evaluation including repeat cardiac enzymes. I did discuss the case with the hospitalist and correctional counselor/case manager. Impression & Plan Respiratory failure, Elevated troponin, Hypoxia Critical Care Time I have personally spent 38 minutes of critical care time in the direct management of this patient. This includes bedside care, interpretation of diagnostic studies, and testing, discussion with consultants, patient, and family members, and other required patient management activities. This 38 minutes is in excess of all separately billable procedures. Critical Care Time: Yes (35) Total Critical Care Time: 35 Discharge Plan Visit Data Chief Complaint: Respiratory Problems Stated Complaint: VIRAL PNEUMONIA, WHEEZING, HALLUCINATING ED Provider: Medhat Biggs Discharge Problem: Respiratory failure, Elevated troponin, Hypoxia Patient Disposition: Being Evaluated by Hospitalist Forms Stand Alone Forms: My [facility] Prescriptions Prescriptions: No Action furosemide 40 mg Tablet 40 mg PO DAILY RF: 0 azithromycin [Zithromax Z-Joe] 250 mg Tablet 250 mg PO DIRECTED RF: 0 metoprolol succinate 50 mg Tablet Extended Release 24 Hr 50 mg PO DAILY RF: 0 prednisone 20 mg Tablet 20 mg PO DAILY RF: 0 lorazepam 0.5 mg Tablet 0.5 mg PO HS RF: 0 albuterol sulfate [Ventolin HFA] 90 mcg/actuation Hfa Aerosol Inhaler 2 puff INHALATION Q4H RF: 0 carbidopa-levodopa 10-100 mg Tablet,Disintegrating 1 tab PO DAILY RF: 0 Referrals Referrals: Brigette Sim PA-C [Primary Care Provider] - The scribe's documentation has been prepared under my direction and personally reviewed by me in its entirety. I confirm that the note above accurately reflects all work, treatment, procedures, and medical decision making performed by me.
[2018-11-08 15:43] LABS: Appearance Urine Cloudy (Clear); Bacteria Urine Automated 2+ (Negative); Bilirubin Urine Negative (Negative); Blood Urine Negative (Negative); Color Urine Yellow; Epithelial Cell Urine Auto >30 /lpf (0-5); Glucose Urine UA Negative (Negative); Ketones Urine Trace (Negative); Leukocyte Esterase Urine 3+ (Negative); Nitrite Urine Negative (Negative); Protein Urine Trace (Negative); Specific Gravity Urine 1.026 (1.000-1.030); Urobilinogen Urine Negative (Negative); pH Urine 6.5 (4.5-7.5)
[2018-11-08] MEDS ORDERED: MAGNESIUM HYDROXIDE SUSP 30 ML UDC PO PRN (15:55)
[2018-11-08] MEDS ORDERED: ACETAMINOPHEN 325 MG TAB PO PRN (15:55)
[2018-11-08] MEDS ORDERED: POLYETHYLENE (MIRALAX) 17 GM PACK PO PRN (15:55)
[2018-11-08] MEDS ORDERED: ALUMINUM/MAGNESIUM SUSP 30 ML UDC PO PRN (15:55)
[2018-11-08] MEDS ORDERED: SODIUM CHLORIDE 0.65% NA SOLN 45 ML (OCEAN) PRN (15:55)
[2018-11-08] MEDS ORDERED: ONDANSETRON INJ 2 MG/ML 2 ML VIAL IV PRN (15:55)
[2018-11-08] MEDS: guaiFENesin 600 MG TABCR PO SCH (16:40)
[2018-11-08] MEDS: methylPREDNISolone 40 MG in SYRINGE 0 ML IV SCH ×2 (16:40→20:57)
[2018-11-08] MEDS: ALBUT/IPRATROP 3MG/0.5MG NEB 3 ML VIAL NEB SCH ×3 (18:27→23:29)
[2018-11-08] MEDS: LORazepam 0.5 MG TAB PO SCH (20:57)
[2018-11-08] MEDS: HEPARIN SOD 5,000 UNIT/0.5 ML VIAL SQ SCH (20:57)
[2018-11-08] MEDS: CARBIDOPA/LEVODOP 10/100MG TAB PO SCH (22:55)
[2018-11-09] MEDS ORDERED: methylPREDNISolone 125 MG/2 ML VIAL ONE (00:36)
[2018-11-09] MEDS ORDERED: methylPREDNISolone 125 MG/2 ML VIAL IV STA (00:42)
[2018-11-09] MEDS ORDERED: methylPREDNISolone 125 MG in SYRINGE 0 ML IV ONE (01:15)
[2018-11-09] MEDS ORDERED: LORazepam 0.5 MG TAB PO STA (03:23)
[2018-11-09] MEDS: ALBUT/IPRATROP 3MG/0.5MG NEB 3 ML VIAL NEB PRN (03:38)
[2018-11-09] MEDS: methylPREDNISolone 40 MG in SYRINGE 0 ML IV SCH ×4 (04:18→21:58)
[2018-11-09] MEDS: CARBIDOPA/LEVODOP 10/100MG TAB PO SCH ×3 (05:31→20:04)
[2018-11-09] MEDS: ALBUT/IPRATROP 3MG/0.5MG NEB 3 ML VIAL NEB SCH ×4 (07:03→19:04)
--- NOTE | 2018-11-09 07:10 | XRay Report ---
SINGLE VIEW CHEST CLINICAL HISTORY: Hypoxia. FINDINGS: An AP, portable, upright chest radiograph is compared to study dated 11/08/2018 and correla noel with chest CT dated 08/26/2017. The examination is degraded by portable technique and patient rot ation. The heart is enlarged and there is atherosclerotic calcification of the thoracic aorta. The p ulmonary vasculature is noncongested. A hiatal hernia is noted. Chronic interstitial thickening is si milar to previous. No airspace consolidation or large pleural effusion is identified. No pneumothorax is seen. The skeletal structures are osteopenic. The bony thorax is grossly intact. IMPRESSION: Cardiomegaly with no acute cardiopulmonary abnormality. Electronically signed by: Silvino Avilez M.D. 11/09/2018 7:08 AM
[2018-11-09] MEDS: HEPARIN SOD 5,000 UNIT/0.5 ML VIAL SQ SCH ×2 (09:16→20:02)
[2018-11-09] MEDS: guaiFENesin 600 MG TABCR PO SCH ×2 (09:17→20:04)
[2018-11-09] MEDS: METOPROLOL SUCC 50MG EXT REL TAB PO SCH (09:17)
[2018-11-09] MEDS: FUROSEMIDE 40 MG TAB PO SCH (09:18)
[2018-11-09] MEDS: AZITHROMYCIN 250 MG TAB PO SCH (09:18)
[2018-11-09 10:01] LABS: iSTAT Art Bld Gas pCO2 Correct 43 mmHg (35-46); iSTAT Art Bld Gas pH Corrected 7.384 (7.35-7.45); iSTAT Arterial Blood Gas HCO3 26 meg/L (19-24); iSTAT Arterial Blood Gas pCO2 44 mmHg (35-46); iSTAT Arterial Blood Gas pH 7.38 (7.35-7.45); iSTAT Carbon Dioxide 27 mEq/l (24-31)
[2018-11-09 10:02] LABS: Patient Temperature 36.7; iSTAT Allen Test Acceptable; iSTAT FiO2 30 %; iSTAT Sample Type Arterial; iSTAT Site R Radial
[2018-11-09 10:03] LABS: iSTAT SpO2 96
--- NOTE | 2018-11-09 10:24 | Hospitalist Progress Note ---
Date of Service November 09, 2018 Assessment & Plan (1) Acute respiratory failure with hypoxia: - This is likely due to acute bronchitis vs viral pneumonia - She has been weaned to 4 L NC with attempts to wean further however will desaturate to 88% and will continue to attempt as treatment continues - Remains afebrile and not experiencing labored breathing at this time but remains with significant wheeze - Will continue Prednisone 40 mg IV Q6H and Duonebs - Zithromax 250 mg daily - Mucinex BID; Nasal saline - Minimal to no clinical improvement in lung sounds but has been able to wean O2 down - Will obtain CTA to R/O PE and maybe comment further on lung mcclendon Present on Admission?: Yes (2) Acute bronchitis: - Treatment as above Present on Admission?: Yes (3) Elevated troponin: - This is likely demand ischemia given hypoxia and work of breathing - this has trended down on serial enzymes - No ischemic findings on EKG and denies CP Present on Admission?: Yes (4) Delirium: - Per records she does have some dementia as well as maybe some from Parkinsons - Likely some acute delirium due to steroids/illness/hospital routine and will monitor Present on Admission?: Yes (5) Hypertension: - Stable - Toprol XL 50 mg daily Present on Admission?: Yes (6) Parkinson disease: - Family reports she is prescribed Sinemet TID however was having insomnia due to taking it this way - Currently only dosing daily and will continue Present on Admission?: Yes (7) Insomnia: - Ativan 0.5 mg daily - family reports she is still experiencing insomnia on this dose and it no longer is working Subjective Patient had a rough night. Was having a lot of anxiety with the BiPAP and work of breathing would increase. She was giving extra ativan this AM so was a bit sleepier in the AM. However she is awake and will mumble some words but looks similar to when she was admitted as she largely keeps her eyes closed however is intermittently reaching for the oxymask or her feet and likely experiencing some delirium She does not appear to be in respiratory distress at this time however lungs are course with significant wheezing Troponins have trended down Will re-evaluate later this afternoon Review of Systems Unobtainable due to cognitive status Physical Exam 2 Vital Signs (Past 24 Hours): Last Vital Signs Temp 37.0 C 11/09/18 07:23 Pulse 70 11/09/18 07:23 Resp 18 11/09/18 07:03 BP 129/62 11/09/18 07:23 Pulse Ox 92 11/09/18 07:23 Constitutional: well developed, well nourished and + ill appearing; no acute distress Eyes: + anicteric sclerae Neck: trachea midline Respiratory: + cough Auscultation: + diminished lung sounds, + rhonchi and + wheezes Cardiovascular: Rate/Rhythm: regular rate and regular rhythm Extremities: no pedal edema and no edema Gastrointestinal (Abdomen): Inspection/Auscultation: normal bowel sounds Percussion/Palpation: abdomen soft; abdomen nontender Skin: no rashes, warm and dry Neurologic: moves all extremities Motor/Sensory: + tremor Psychiatric: Orientation: alert
[2018-11-09] MEDS ORDERED: MAGNESIUM SULFATE / D5W 1 GM/100 ML BAG IV ONE (12:37)
[2018-11-09] MEDS ORDERED: OPTIRAY 320 125ml IV PRN (14:39)
--- NOTE | 2018-11-09 15:02 | CT Scan Report ---
CT ANGIOGRAPHY OF THE CHEST, PULMONARY EMBOLUS PROTOCOL CLINICAL HISTORY: PE; Hypoxia/Labored Breathing/Pneumonia. COMPARISON STUDY: Chest CT August 26, 2017. Chest radiograph performed earlier today. TECHNIQUE: Following IV administration of 120 mL of Optiray-320, helical axial images of the chest we re obtained utilizing the pulmonary embolus protocol. Maximal intensity projections and sagittal and coronal reformats were viewed on an independent 3D workstation. IV contrast was administered withou t complication. Automated exposure control was utilized for the study. A dose lowering technique wa s utilized adhering to the principles of ALARA. CT DOSE: 430.56 mGycm FINDINGS: No central pulmonary emboli are identified. The lobar, segmental and subsegmental pulmonar y arteries are suboptimally assessed given respiratory motion. The heart is mildly enlarged. There's no pericardial effusion. There are no enlarged thoracic lymph nodes. A large hiatal hernia with parti ally intrathoracic stomach is noted. There is no pneumothorax. A trace left pleural effusion is noted . Adjacent airspace opacity favors atelectasis. The lungs are suboptimally assessed given respiratory motion. There is mild groundglass and tree-in-bud nodules within the lungs. There are extensive secr etions within the airways, including the bilateral mainstem bronchi. There is airway narrowing. Heali ng left-sided rib fractures are noted. There are old right rib fractures. IMPRESSION: 1. No central pulmonary emboli. Remainder of the arteries suboptimally assessed given respiratory mot ion. 2. Extensive secretions within the airways. Airway narrowing raises the possibility of tracheobroncho malacia. 3. Mild groundglass and tree-in-bud nodules within the lungs which favor a mild infectious process. 4. Large hiatal hernia with partially intrathoracic stomach. Electronically signed by: Christian Perry M.D. 11/09/2018 3:01 PM
[2018-11-09] MEDS: ACETYLCYSTEINE 10% INHAL SOLN **DISPENSED FROM RESP. INH SCH (19:02)
[2018-11-09] MEDS: FORMOTEROL 20 MCG/2 ML VIAL NEB SCH (19:14)
[2018-11-09] MEDS: LORazepam 0.5 MG TAB PO SCH (20:04)
[2018-11-10] MEDS: methylPREDNISolone 40 MG in SYRINGE 0 ML IV SCH ×4 (03:41→23:50)
[2018-11-10] MEDS: CARBIDOPA/LEVODOP 10/100MG TAB PO SCH ×3 (05:16→20:10)
[2018-11-10] MEDS: ACETYLCYSTEINE 10% INHAL SOLN **DISPENSED FROM RESP. INH SCH ×2 (06:54→19:15)
[2018-11-10] MEDS: ALBUT/IPRATROP 3MG/0.5MG NEB 3 ML VIAL NEB SCH ×4 (06:54→20:43)
[2018-11-10] MEDS: FORMOTEROL 20 MCG/2 ML VIAL NEB SCH ×2 (06:55→19:15)
[2018-11-10] MEDS ORDERED: PIPERACILL/TAZOBAC CONSULT ACTIVE PRN (07:56)
[2018-11-10 08:21] LABS: Basophils # (auto) 0.01 K/uL (0-0.2); Basophils % (auto) 0.1 %; Hematocrit (blood only) 43.3 % (37-47); Hemoglobin 13.8 g/dL (12.0-16.0); Immature Granulocytes # (auto) 0.04 K/uL (0.00-0.02); Immature Granulocytes % (auto) 0.3 %; Lymphocytes # (auto) 1.18 K/uL (1.2-3.4); Lymphocytes % (auto) 10.3 %; Mean Corpuscular Hgb Conc 31.9 g/dL (32-36); Mean Corpuscular Volume 88.4 fL (80-100); Mean Platelet Volume 10.6 fL (7.4-10.4); Monocytes # (auto) 1.25 K/uL (0.11-0.59); Monocytes % (auto) 10.9 %; Neutrophils # (auto) 9.01 K/uL (1.4-6.5); Neutrophils % (auto) 78.4 %; Platelet Count 198 K/uL (130-400); RDW Coefficient of Variation 15.3 % (11.5-14.5); RDW Standard Deviation 49.1 fL (36.4-46.3); White Blood Count 11.49 K/uL (4.8-10.8)
[2018-11-10 08:36] LABS: BUN Creatinine Ratio 28.6 (10-20); Calcium 8.6 mg/dl (8.5-10.1); Creatinine Clr Calc Pharmacy 42.4 ml/min; Est GFR (African American) 85.9; Est GFR (Non-African American) 74.1; Magnesium 2.4 mg/dl (1.8-2.4); Potassium 3.4 mmol/L (3.5-5.1)
[2018-11-10] MEDS: guaiFENesin 600 MG TABCR PO SCH ×2 (09:01→20:09)
[2018-11-10] MEDS: FUROSEMIDE 40 MG TAB PO SCH (09:01)
[2018-11-10] MEDS: AZITHROMYCIN 250 MG TAB PO SCH (09:01)
[2018-11-10] MEDS: HEPARIN SOD 5,000 UNIT/0.5 ML VIAL SQ SCH ×2 (09:02→20:09)
[2018-11-10] MEDS: METOPROLOL SUCC 50MG EXT REL TAB PO SCH (09:02)
--- NOTE | 2018-11-10 10:26 | Hospitalist Progress Note ---
Date of Service November 10, 2018 Assessment & Plan (1) Acute respiratory failure with hypoxia: - This is likely due to aspiration pneumonia given the tree-in-bud opacities/nodules and significant secretions in the airways on CT scan. Patient with a large hiatal hernia with partially intrathoracic stomach is likely contributing to her aspiration. CT angiogram negative for pulmonary emboli She is now weaned off oxygen to room air with borderline low oxygen saturations -Adding Zosyn on as below for aspiration -She has no history of asthma or COPD documented, wheezing could be due to acute bronchitis-okay to continue steroids but will reduce frequency to Solu- Medrol 40 mg IV every 8 hours -Continue Mucinex BID; Nasal saline, Mucomyst -Continue bronchodilator nebulizers on a scheduled basis -Supplemental O2 as needed to keep pulse ox greater than 92% -May need a two-step prior to discharge (2) Hiatal hernia with gastroesophageal reflux: With partially intrathoracic stomach noted on CT scan. Likely contributing to her aspiration pneumonitis -Start Protonix 40 mg once daily (3) Aspiration pneumonitis: Noted on CT of the chest with tree-in-bud nodular opacities and significant secretions throughout the airways which were all consistent with aspiration. Intrathoracic stomach contributing as above. Also with Parkinson's disease which could be contributing as well. -Treating GERD with PPI -Add on Zosyn IV to antibiotic regimen-day #1 -continue Zithromax for bronchitis as above for total 5-day course-day #3 -Speech evaluation ordered for today -Follow blood cultures-no growth to date (4) Elevated troponin: Troponin mildly elevated at 0.057/0 0.051/0.048. ECGs on admission were normal sinus rhythm with no ischemic changes - This is likely myocardial demand ischemia given hypoxia and aspiration pneumonitis -We will check echocardiogram for wall motion abnormalities to complete the workup especially as she does seem to be on a beta-bob and furosemide as an outpatient-unknown diagnosis, question of has some sort of diastolic or systolic CHF perhaps -Continue monitoring on telemetry (5) Hypertension: Blood pressures elevated at times. Likely exacerbated also by IV steroids -Tapering down IV steroids -Continue Toprol XL 50 mg daily -Continue furosemide 40 mg once daily (6) Parkinson disease: -Continue Sinemet 3 times daily as prescribed by her primary care provider -It is unclear she follows with a neurologist at this time is no outpatient records available and patient unable to give history (7) Insomnia: On chronic benzodiazepine at home for insomnia at bedtime -Would strongly recommend tapering off this or stopping it altogether as this can make delirium worse and contribute to falls in the elderly especially in the setting of Parkinson's disease. Also, family previously reported that it does not even help her sleep anyway. -We will reduce the dose to 0.25 mg at bedtime every night starting tonight -Would recommend she follow-up with a neurologist for discussion of management of her insomnia in the setting of her Parkinson's and dementia (8) Acute metabolic encephalopathy: Likely secondary to acute infection, steroids could be contributing. In the setting of mild dementia. -Awaiting daughter to come in today to assess her to see if there is improvement from baseline as this is the first day I have met her Remains confused treating aspiration pneumonia as above -Urine culture with pinpoint growth-would follow but Zosyn would likely cover for any urinary tract infection as well (9) Hypokalemia: Mildly low, replaced with oral potassium chloride today (10) DVT prophylaxis: SQ heparin Disposition-remain on telemetry unit PT/OT consulted-both are recommending inpatient rehab versus SNF upon discharge. Case management is following Subjective Patient confused. Does report feeling a little better than before. She still coughing yellow sputum. Has been afebrile. She does not know where she is or why she is here. She denies chest pain or abdominal pain. Telemetry with normal sinus rhythm in the 60s-80s, PACs, PVCs Review of Systems Unobtainable due to cognitive status Physical Exam 2 Vital Signs (Past 24 Hours): Last Vital Signs Temp 36.8 C 11/10/18 07:48 Pulse 77 11/10/18 07:48 Resp 20 11/10/18 07:48 BP 168/82 H 11/10/18 07:48 Pulse Ox 91 11/10/18 07:48 Constitutional: + thin (Sitting in bed with her knees pulled up to her chest, mildly confused) Eyes: PERRL, conjunctivae normal, anicteric sclerae ENMT: Ears: + hearing impairment Neck: trachea midline, no thyromegaly Respiratory: normal respiratory effort Auscultation: + wheezes ( Inspiratory and expiratory mostly in the upper and middle lung mcclendon) Cardiovascular: RRR, no murmur, no edema Gastrointestinal (Abdomen): normal bowel sounds, soft, nontender, no hepatosplenomegaly Musculoskeletal: Extremities: extremities normal to inspection; no cyanosis and no clubbing Skin: no rashes, warm and dry Neurologic: moves all extremities and awake; no focal motor deficits Psychiatric: Orientation: alert, oriented to person and cooperative; + not oriented to place and + not oriented to time Results & Data Laboratory Results 11/10/18 11/10/18 11/10/18 Range/Units 08:05 08:05 08:05 WBC 11.49 H (4.8-10.8) K/uL RBC 4.90 (4.2-5.4) M/uL Hgb 13.8 (12.0-16.0) g/dL Hct 43.3 (37-47) % MCV 88.4 (80-100) fL MCH 28.2 (25-34) pg MCHC 31.9 L (32-36) g/dL RDW Std Deviation 49.1 H (36.4-46.3) fL RDW Coeff of Tamera 15.3 H (11.5-14.5) % Plt Count 198 (130-400) K/uL MPV 10.6 H (7.4-10.4) fL Immature Gran % (Auto) 0.3 % Neut % (Auto) 78.4 % Lymph % (Auto) 10.3 % [place] % (Auto) 10.9 % Eos % (Auto) 0.0 % Baso % (Auto) 0.1 % Immature Gran # (Auto) 0.04 H (0.00-0.02) K/uL Neut # (Auto) 9.01 H (1.4-6.5) K/uL Lymph # (Auto) 1.18 L (1.2-3.4) K/uL [place] # (Auto) 1.25 H (0.11-0.59) K/uL Eos # (Auto) 0.00 (0-0.5) K/uL Baso # (Auto) 0.01 (0-0.2) K/uL Sodium 140 (136-145) mmol/L Potassium 3.4 L (3.5-5.1) mmol/L Chloride 106 (98-107) mmol/L Carbon Dioxide 28 (21-32) mmol/L Anion Gap 6.0 (3-11) BUN 22 H (7-18) mg/dl Creatinine 0.76 (0.6-1.2) mg/dl Est Cr Clr Drug Dosing 42.4 ml/min Est GFR ( Amer) 85.9 Est GFR (Non-Af Amer) 74.1 BUN/Creatinine Ratio 28.6 H (10-20) Glucose 94 (70-99) mg/dl Calcium 8.6 (8.5-10.1) mg/dl Magnesium 2.4 (1.8-2.4) mg/dl Procalcitonin < 0.05 (0-0.5) ng/ml Diagnostic Findings CTA of the chest personally reviewed by me and agree with the following report: CT ANGIOGRAPHY OF THE CHEST, PULMONARY EMBOLUS PROTOCOL CLINICAL HISTORY: PE; Hypoxia/Labored Breathing/Pneumonia. COMPARISON STUDY: Chest CT August 26, 2017. Chest radiograph performed earlier today. TECHNIQUE: Following IV administration of 120 mL of Optiray-320, helical axial images of the chest were obtained utilizing the pulmonary embolus protocol. Maximal intensity projections and sagittal and coronal reformats were viewed on an independent 3D workstation. IV contrast was administered without complication. Automated exposure control was utilized for the study. A dose lowering technique was utilized adhering to the principles of ALARA. CT DOSE: 430.56 mGycm FINDINGS: No central pulmonary emboli are identified. The lobar, segmental and subsegmental pulmonary arteries are suboptimally assessed given respiratory motion. The heart is mildly enlarged. There's no pericardial effusion. There are no enlarged thoracic lymph nodes. A large hiatal hernia with partially intrathoracic stomach is noted. There is no pneumothorax. A trace left pleural effusion is noted. Adjacent airspace opacity favors atelectasis. The lungs are suboptimally assessed given respiratory motion. There is mild groundglass and tree-in-bud nodules within the lungs. There are extensive secretions within the airways, including the bilateral mainstem bronchi. There is airway narrowing. Healing left-sided rib fractures are noted. There are old right rib fractures. IMPRESSION: 1. No central pulmonary emboli. Remainder of the arteries suboptimally assessed given respiratory motion. 2. Extensive secretions within the airways. Airway narrowing raises the possibility of tracheobronchomalacia. 3. Mild groundglass and tree-in-bud nodules within the lungs which favor a mild infectious process. 4. Large hiatal hernia with partially intrathoracic stomach. _ (1) Insomnia Insomnia type: unspecified Qualified Code(s): G47.00 - Insomnia, unspecified (2) Hypertension Hypertension type: essential hypertension Qualified Code(s): I10 - Essential (primary) hypertension
[2018-11-10] MEDS ORDERED: PIPERACILLIN/TAZOBACTAM 4.5 GM in DEXTROSE 5% 100 ML IV ONE (11:00)
[2018-11-10] MEDS: PANTOprazole 40 MG TAB PO SCH (11:37)
[2018-11-10] MEDS: PIPERACILLIN/TAZOBACTAM 3.375 GM in DEXTROSE 5% 100 ML IV SCH ×2 (15:40→23:49)
[2018-11-10] MEDS: LORazepam 0.5 MG TAB PO SCH (20:08)
[2018-11-11] MEDS: ALBUT/IPRATROP 3MG/0.5MG NEB 3 ML VIAL NEB PRN (00:41)
[2018-11-11] MEDS: CARBIDOPA/LEVODOP 10/100MG TAB PO SCH ×3 (05:48→20:31)
[2018-11-11 05:51] LABS: Hematocrit (blood only) 40.9 % (37-47); Hemoglobin 12.8 g/dL (12.0-16.0); Immature Granulocytes # (auto) 0.03 K/uL (0.00-0.02); Immature Granulocytes % (auto) 0.4 %; Lymphocytes # (auto) 0.52 K/uL (1.2-3.4); Lymphocytes % (auto) 6.6 %; Mean Corpuscular Hgb Conc 31.3 g/dL (32-36); Mean Corpuscular Volume 88.1 fL (80-100); Mean Platelet Volume 10.8 fL (7.4-10.4); Monocytes % (auto) 5.1 %; Neutrophils # (auto) 6.94 K/uL (1.4-6.5); Neutrophils % (auto) 87.9 %; Platelet Count 198 K/uL (130-400); RDW Coefficient of Variation 15.4 % (11.5-14.5); RDW Standard Deviation 49.3 fL (36.4-46.3); Red Blood Count 4.64 M/uL (4.2-5.4); White Blood Count 7.89 K/uL (4.8-10.8)
[2018-11-11 06:08] LABS: BUN Creatinine Ratio 36.1 (10-20); Calcium 8.2 mg/dl (8.5-10.1); Creatinine Clr Calc Pharmacy 47.4 ml/min; Est GFR (African American) 95.8; Est GFR (Non-African American) 82.6; Magnesium 2.3 mg/dl (1.8-2.4); Potassium 3.5 mmol/L (3.5-5.1)
[2018-11-11] MEDS: FORMOTEROL 20 MCG/2 ML VIAL NEB SCH ×2 (07:02→19:58)
[2018-11-11] MEDS: ACETYLCYSTEINE 10% INHAL SOLN **DISPENSED FROM RESP. INH SCH ×2 (07:03→19:52)
[2018-11-11] MEDS: ALBUT/IPRATROP 3MG/0.5MG NEB 3 ML VIAL NEB SCH ×4 (07:03→19:52)
[2018-11-11] MEDS: METOPROLOL SUCC 50MG EXT REL TAB PO SCH (08:44)
[2018-11-11] MEDS: PANTOprazole 40 MG TAB PO SCH (08:44)
[2018-11-11] MEDS: FUROSEMIDE 40 MG TAB PO SCH (08:44)
[2018-11-11] MEDS: PIPERACILLIN/TAZOBACTAM 3.375 GM in DEXTROSE 5% 100 ML IV SCH ×2 (08:45→16:46)
[2018-11-11] MEDS: guaiFENesin 600 MG TABCR PO SCH ×2 (08:45→20:31)
[2018-11-11] MEDS: HEPARIN SOD 5,000 UNIT/0.5 ML VIAL SQ SCH ×2 (08:45→20:32)
[2018-11-11] MEDS: methylPREDNISolone 40 MG in SYRINGE 0 ML IV SCH ×2 (08:45→16:47)
--- NOTE | 2018-11-11 11:44 | Hospitalist Progress Note ---
Date of Service November 11, 2018 Assessment & Plan (1) Acute respiratory failure with hypoxia: 2nd to acute bronchitis/aspiration pneumonia. Slow improvement. Initially required BIPAP and/or oxymask early on in her stay. Has weaned to RA. Cont supportive care measures. Present on Admission?: Yes (2) Aspiration pneumonitis: Ongoing. Certainly at risk of such due to large hiatal hernia, dementia process, etc. Cont zosyn. Day #4 of abx. Speech therapy consult appreciated; video swallow ordered for tomorrow. Cont steroids, nebs, etc. Present on Admission?: Yes (3) Acute metabolic encephalopathy: 2nd to aspiration pneumonia. Cont to reinforce day/night cycle, avoid sedatives if possible, etc. Use atypical antipsychotic at HS as last resort. (4) Hiatal hernia with gastroesophageal reflux: large on imaging. PPI. certainly places her at high risk of aspiration. (5) Elevated troponin: myocardial demand ischemia in setting of acute resp failure & pneumonia. echo findings noted; no wall motion abnormalities. (6) Hypertension: control acceptable at this time (7) Dementia: could have Lewy-Body dementia given the hallucinations and parkinsomnism. or, she could have Parkinson's disease with resulting dementia. either way she has advanced dementia by history. (8) Chronic kidney disease with symptom management only, stage 3 (moderate): BMP in am creatinine stable today (9) DVT prophylaxis: heparin 5000 BID family updated at bedside today await PT, OT evals to help assist w/ disposition Subjective staff report sundowning last pm. tele with one brief run of probable a. tach. during my visit she was very difficult to arouse. her daughter & son-in-law were at bedside. she ultimately did wake up later in the visit but was confused. she could not offer any meaningful history or ROS. daughter confirms worsening dementia for 1-2 years. ?parkinson's? patient has severe hallucinations at home. she has extrapyramidal symptoms of the face - also present for quite some time. Review of Systems Unobtainable due to cognitive status and Unobtainable due to reduced consciousness Physical Exam 2 Vital Signs (Past 24 Hours): Last Vital Signs Temp 36.8 C 11/11/18 08:00 Pulse 52 L 11/11/18 11:14 Resp 18 11/11/18 11:14 BP 145/83 H 11/11/18 08:00 Pulse Ox 89 L 11/11/18 11:14 Constitutional: + ill appearing, average body habitus and + altered mental status; no acute distress ENMT: dried mucous/food remnants in mouth Respiratory: Auscultation: + rhonchi and + wheezes Cardiovascular: Rate/Rhythm: regular rate and regular rhythm Heart Sounds: normal S1 and normal S2 Vessels: posterior tibial pulses present and dorsalis pedis pulses present; no JVD Gastrointestinal (Abdomen): normal bowel sounds, soft, nontender, no hepatosplenomegaly Psychiatric: sleepy initially, then awoke; oriented to person only Results & Data Laboratory Results Laboratory Results - last 24 hr 11/11/18 11/11/18 05:38 05:38 WBC 7.89 RBC 4.64 Hgb 12.8 Hct 40.9 MCV 88.1 MCH 27.6 MCHC 31.3 L RDW Std Deviation 49.3 H RDW Coeff of Tamera 15.4 H Plt Count 198 MPV 10.8 H Immature Gran % (Auto) 0.4 Neut % (Auto) 87.9 Lymph % (Auto) 6.6 [place] % (Auto) 5.1 Eos % (Auto) 0.0 Baso % (Auto) 0.0 Immature Gran # (Auto) 0.03 H Neut # (Auto) 6.94 H Lymph # (Auto) 0.52 L [place] # (Auto) 0.40 Eos # (Auto) 0.00 Baso # (Auto) 0.00 Sodium 142 Potassium 3.5 Chloride 106 Carbon Dioxide 29 Anion Gap 7.0 BUN 24 H Creatinine 0.68 Est Cr Clr Drug Dosing 47.4 Est GFR ( Amer) 95.8 Est GFR (Non-Af Amer) 82.6 BUN/Creatinine Ratio 36.1 H Glucose 117 H Calcium 8.2 L Magnesium 2.3 _ (1) Hypertension Hypertension type: essential hypertension Qualified Code(s): I10 - Essential (primary) hypertension
[2018-11-11] MEDS: LORazepam 0.5 MG TAB PO SCH (20:30)
[2018-11-12] MEDS: PIPERACILLIN/TAZOBACTAM 3.375 GM in DEXTROSE 5% 100 ML IV SCH ×3 (00:36→16:30)
[2018-11-12] MEDS: methylPREDNISolone 40 MG in SYRINGE 0 ML IV SCH ×3 (00:36→15:12)
[2018-11-12] MEDS: CARBIDOPA/LEVODOP 10/100MG TAB PO SCH ×3 (06:07→20:44)
[2018-11-12] MEDS: ALBUT/IPRATROP 3MG/0.5MG NEB 3 ML VIAL NEB SCH ×4 (07:18→18:50)
[2018-11-12] MEDS: ACETYLCYSTEINE 10% INHAL SOLN **DISPENSED FROM RESP. INH SCH ×2 (07:18→18:50)
[2018-11-12] MEDS: guaiFENesin 600 MG TABCR PO SCH ×2 (07:56→20:43)
[2018-11-12] MEDS: FUROSEMIDE 40 MG TAB PO SCH (07:56)
[2018-11-12] MEDS: PANTOprazole 40 MG TAB PO SCH (07:56)
[2018-11-12] MEDS: METOPROLOL SUCC 50MG EXT REL TAB PO SCH (07:56)
[2018-11-12] MEDS: HEPARIN SOD 5,000 UNIT/0.5 ML VIAL SQ SCH ×2 (07:57→21:03)
[2018-11-12 10:12] LABS: BUN Creatinine Ratio 27.7 (10-20); Calcium 8.2 mg/dl (8.5-10.1); Est GFR (African American) 68.2; Est GFR (Non-African American) 58.8; Potassium 3.2 mmol/L (3.5-5.1)
[2018-11-12] MEDS: FORMOTEROL 20 MCG/2 ML VIAL NEB SCH ×2 (10:29→20:17)
[2018-11-12] MEDS ORDERED: POTASSIUM CHLORIDE 10 MEQ TABCR PO STA ×2 (10:53→17:34)
--- NOTE | 2018-11-12 14:45 | Fluoroscopy Report ---
FL video swallow CLINICAL HISTORY: r/o aspiration; COMPARISON STUDY: None. FLUOROSCOPY TIME: 2.4 minutes FINDINGS: No aspiration was identified with thin liquids, nectar thick liquids, pudding or crackers w ith paste. Mild premature spillage was noted. There was moderate esophageal dysmotility. Large hiatal hernia with intrathoracic stomach was noted. IMPRESSION: 1. No tracheal aspiration identified. 2. Moderate esophageal dysmotility and a large hiatal hernia with partially intrathoracic stomach. 3. Full recommendations by speech pathology to follow. Electronically signed by: Christian Perry M.D. 11/12/2018 2:44 PM
--- NOTE | 2018-11-12 16:15 | XRay Report ---
XR chest 2V routine CLINICAL HISTORY: extensive bilateral rales wheeze dyspnea COMPARISON STUDY: 11/09/2018 FINDINGS: Poor inspiratory volumes. Diaphragms are smooth. Limited visibility of the upper chest due to overlying soft tissue structures. Considerable degenerative change thoracic spine. IMPRESSION: Emphysematous and chronic change. No acute process. Hiatal hernia. The above report was generated using voice recognition software. It may contain grammatical, syntax or spelling errors. Electronically signed by: Mc Frausto M.D. 11/12/2018 4:14 PM
[2018-11-12] MEDS ORDERED: FUROSEMIDE 20 MG TAB PO ONE (17:34)
--- NOTE | 2018-11-12 20:15 | Hospitalist Progress Note ---
Date of Service November 12, 2018 Assessment & Plan (1) Acute respiratory failure with hypoxia: 2nd to acute bronchitis/aspiration pneumonia. Improved/resolved. Initially required BIPAP and/or oxymask early on in her stay. Has weaned to RA. Cont supportive care measures. Repeat cxr today stable. (2) Aspiration pneumonitis: Ongoing. Certainly at risk of such due to large hiatal hernia, dementia process, etc. However, video swallow normal today. Cont zosyn. Day #5 of abx. Speech therapy consult appreciated. Cont steroids, nebs, etc. No wean on steroids today. Despite stable cxr (no pulmonary edema seen) I am going to give an additional dose of po lasix today. (3) Acute metabolic encephalopathy: 2nd to aspiration pneumonia. Improving. Cont to reinforce day/night cycle, avoid sedatives if possible, etc. Use atypical antipsychotic at HS as last resort. (4) Hiatal hernia with gastroesophageal reflux: large on imaging. PPI. certainly places her at high risk of aspiration. (5) Elevated troponin: myocardial demand ischemia in setting of acute resp failure & pneumonia. echo findings noted; no wall motion abnormalities. (6) Hypertension: control acceptable at this time (7) Dementia: could have Lewy-Body dementia given the hallucinations and parkinsonism. or, she could have Parkinson's disease with resulting dementia. either way she has advanced dementia by history. acute delirium has improved. (8) Chronic kidney disease with symptom management only, stage 3 (moderate): creatinine stable once again today (9) Hypokalemia: replace, repeat level in am (10) DVT prophylaxis: heparin 5000 BID OT recommending SNF after d/c PT did not make a specific recommendation will need repeat evals tomorrow leave on tele 1 more day then can likely go to med/surg Subjective tele stable overnight pt much more awake, alert today; asking "what hospital am I in?" despite being more awake/alert obtaining an accurate review of systems was challenging Review of Systems Unobtainable due to cognitive status Physical Exam 2 Vital Signs (Past 24 Hours): Last Vital Signs Temp 36.8 C 11/12/18 19:49 Pulse 83 11/12/18 19:49 Resp 18 11/12/18 19:49 BP 129/78 11/12/18 19:49 Pulse Ox 94 11/12/18 19:49 Constitutional: + ill appearing and average body habitus; no acute distress Respiratory: Auscultation: + crackles (extensive, b/l bases), + rhonchi and + wheezes Cardiovascular: Rate/Rhythm: regular rate and regular rhythm Heart Sounds: normal S1 and normal S2 Vessels: posterior tibial pulses present and dorsalis pedis pulses present; no JVD Gastrointestinal (Abdomen): normal bowel sounds, soft, nontender, no hepatosplenomegaly Neurologic: resting tremor; tremor of facial muscles as well Psychiatric: Orientation: alert and oriented to person; + not oriented to place and + not oriented to time Results & Data Laboratory Results Laboratory Results - last 24 hr 11/12/18 09:36 Sodium 140 Potassium 3.2 L Chloride 102 Carbon Dioxide 28 Anion Gap 10.0 BUN 26 H Creatinine 0.92 Est Cr Clr Drug Dosing 35.0 Est GFR ( Amer) 68.2 Est GFR (Non-Af Amer) 58.8 BUN/Creatinine Ratio 27.7 H Glucose 147 H Calcium 8.2 L _ (1) Dementia Dementia type: unspecified type Dementia behavioral disturbance: without behavioral disturbance Qualified Code(s): F03.90 - Unspecified dementia without behavioral disturbance (2) Hypertension Hypertension type: essential hypertension Qualified Code(s): I10 - Essential (primary) hypertension
[2018-11-12] MEDS: LORazepam 0.5 MG TAB PO SCH (20:43)
[2018-11-13] MEDS: PIPERACILLIN/TAZOBACTAM 3.375 GM in DEXTROSE 5% 100 ML IV SCH ×3 (01:01→16:01)
[2018-11-13] MEDS: methylPREDNISolone 40 MG in SYRINGE 0 ML IV SCH ×3 (01:01→16:01)
[2018-11-13 06:10] LABS: BUN Creatinine Ratio 29.8 (10-20); Calcium 7.8 mg/dl (8.5-10.1); Creatinine Clr Calc Pharmacy 41.9 ml/min; Est GFR (African American) 84.5; Est GFR (Non-African American) 72.9; Magnesium 2.3 mg/dl (1.8-2.4)
[2018-11-13] MEDS: CARBIDOPA/LEVODOP 10/100MG TAB PO SCH ×3 (06:12→21:18)
[2018-11-13] MEDS: FORMOTEROL 20 MCG/2 ML VIAL NEB SCH ×2 (06:55→19:15)
[2018-11-13] MEDS: ACETYLCYSTEINE 10% INHAL SOLN **DISPENSED FROM RESP. INH SCH ×2 (06:56→19:14)
[2018-11-13] MEDS: guaiFENesin 600 MG TABCR PO SCH ×2 (08:23→21:18)
[2018-11-13] MEDS: FUROSEMIDE 40 MG TAB PO SCH ×2 (08:23→16:00)
[2018-11-13] MEDS: METOPROLOL SUCC 50MG EXT REL TAB PO SCH (08:23)
[2018-11-13] MEDS: PANTOprazole 40 MG TAB PO SCH (08:23)
[2018-11-13] MEDS: HEPARIN SOD 5,000 UNIT/0.5 ML VIAL SQ SCH ×2 (08:24→21:19)
[2018-11-13] MEDS: ALBUT/IPRATROP 3MG/0.5MG NEB 3 ML VIAL NEB SCH ×4 (08:25→19:14)
--- NOTE | 2018-11-13 11:30 | Hospitalist Progress Note ---
Date of Service November 13, 2018 Assessment & Plan (1) Acute respiratory failure with hypoxia: Secondary to acute bronchitis/aspiration pneumonia. Improved/resolved. Initially required BIPAP and/or oxymask early on in her stay. Has weaned to RA. Cont supportive care measures. Repeat cxr on 11/12 stable. With persistent crackles, may be from pneumonia but also may be some volume overload-we will give another extra dose of Lasix today Cont steroids, nebs, etc. No wean on steroids today given persistent wheezing. (2) Aspiration pneumonitis: Ongoing. Certainly at risk of such due to large hiatal hernia, dementia process, etc. However, video swallow without aspiration, but does have moderate esophageal dysmotility and intrathoracic stomach with large hiatal hernia. I do believe that she has reflux and evidence of chronic aspiration with tree-in -bud opacities on CT scan of the chest. Remains on Zosyn-started on 11/10/18-today is day #4 -Will convert to p.o. Augmentin tomorrow to complete a 7-day course Speech therapy consult appreciated. Must be upright with eating and all recommendations as per speech therapy otherwise -Placed on p.o. Protonix and will continue this indefinitely to reduce reflux (3) Acute metabolic encephalopathy: 2nd to aspiration pneumonia. Much improved since I last saw her Cont to reinforce day/night cycle, avoid sedatives if possible, etc. Use atypical antipsychotic at HS as last resort. (4) Hiatal hernia with gastroesophageal reflux: large on imaging. PPI. certainly places her at high risk of aspiration. (5) Elevated troponin: myocardial demand ischemia in setting of acute resp failure & pneumonia. echo findings noted; no wall motion abnormalities. (6) Hypertension: control acceptable at this time (7) Dementia: could have Lewy-Body dementia given the hallucinations and parkinsonism. or, she could have Parkinson's disease with resulting dementia. either way she has advanced dementia by history. acute delirium has improved. (8) Chronic kidney disease with symptom management only, stage 3 (moderate): creatinine stable once again today (9) Hypokalemia: Replaced and is no normalized -Follow BMP given that we are giving extra Lasix today (10) Acute on chronic diastolic heart failure: With grade 1 diastolic dysfunction on echocardiogram done this admission. With crackles on examination -Give extra dose of p.o. Lasix this afternoon -Continue home dose of furosemide 40 mg daily -Follow I's and O's, daily weights (11) DVT prophylaxis: heparin 5000 BID OT recommending SNF after d/c PT did not make a specific recommendation will need repeat evals today, however patient is adamantly refusing SNIF placement Case management reports that patient has 24/7 caregivers at home and goes to her daughter's on the weekends -Would be okay then to send home with home health with 24/7 care, but certainly not ready to go home just yet Okay to transfer to medical floor off of telemetry Subjective Patient feeling much better than previous, denies shortness of breath. Nurse reports that she is ambulating with assistance around the room and eating, doing much better. Telemetry with sinus bradycardia in the 50s, one brief run of atrial tachycardia. Review of Systems All systems reviewed & are unremarkable except as noted in HPI & below Physical Exam 2 Vital Signs (Past 24 Hours): Last Vital Signs Temp 36.8 C 11/13/18 08:05 Pulse 69 11/13/18 11:13 Resp 16 11/13/18 11:13 BP 169/76 H 11/13/18 08:05 Pulse Ox 93 11/13/18 11:13 Constitutional: + thin (Sitting in chair, alert, awake, answering questions appropriately, no acute distress); not ill appearing Eyes: PERRL, conjunctivae normal, anicteric sclerae ENMT: Ears: + hearing impairment Neck: trachea midline, no thyromegaly Respiratory: normal respiratory effort Auscultation: + crackles (In bibasilar region, with kyphosis) and + wheezes (Mild expiratory wheezes much improved from previous and bilateral middle and lower lung mcclendon) Cardiovascular: RRR, no murmur, no edema Gastrointestinal (Abdomen): normal bowel sounds, soft, nontender, no hepatosplenomegaly Musculoskeletal: Extremities: extremities normal to inspection; no cyanosis and no clubbing Skin: no rashes, warm and dry Neurologic: moves all extremities and awake; no focal motor deficits Psychiatric: Orientation: alert, oriented to person and cooperative Results & Data Laboratory Results 11/13/18 Range/Units 05:25 Sodium 139 (136-145) mmol/L Potassium 4.0 D (3.5-5.1) mmol/L Chloride 105 (98-107) mmol/L Carbon Dioxide 29 (21-32) mmol/L Anion Gap 5.0 (3-11) BUN 23 H (7-18) mg/dl Creatinine 0.77 (0.6-1.2) mg/dl Est Cr Clr Drug Dosing 41.9 ml/min Est GFR ( Amer) 84.5 Est GFR (Non-Af Amer) 72.9 BUN/Creatinine Ratio 29.8 H (10-20) Glucose 156 H (70-99) mg/dl Calcium 7.8 L (8.5-10.1) mg/dl Magnesium 2.3 (1.8-2.4) mg/dl _ (1) Hypertension Hypertension type: essential hypertension Qualified Code(s): I10 - Essential (primary) hypertension (2) Dementia Dementia type: unspecified type Alzheimer's disease onset: Dementia behavioral disturbance: without behavioral disturbance Qualified Code(s): F03.90 - Unspecified dementia without behavioral disturbance
[2018-11-13] MEDS: LORazepam 0.5 MG TAB PO SCH (21:18)
[2018-11-14] MEDS: PIPERACILLIN/TAZOBACTAM 3.375 GM in DEXTROSE 5% 100 ML IV SCH ×2 (00:07→09:06)
[2018-11-14] MEDS: methylPREDNISolone 40 MG in SYRINGE 0 ML IV SCH ×3 (00:36→16:30)
[2018-11-14] MEDS: CARBIDOPA/LEVODOP 10/100MG TAB PO SCH ×3 (06:03→21:00)
[2018-11-14 06:24] LABS: BUN Creatinine Ratio 22.4 (10-20); Calcium 8.1 mg/dl (8.5-10.1); Creatinine Clr Calc Pharmacy 36.6 ml/min; Est GFR (African American) 71.9; Est GFR (Non-African American) 62.1; Magnesium 2.2 mg/dl (1.8-2.4); Potassium 4.1 mmol/L (3.5-5.1)
[2018-11-14] MEDS: ALBUT/IPRATROP 3MG/0.5MG NEB 3 ML VIAL NEB SCH ×4 (06:59→20:58)
[2018-11-14] MEDS: FORMOTEROL 20 MCG/2 ML VIAL NEB SCH ×2 (06:59→19:19)
[2018-11-14] MEDS: ACETYLCYSTEINE 10% INHAL SOLN **DISPENSED FROM RESP. INH SCH (06:59)
[2018-11-14] MEDS: guaiFENesin 600 MG TABCR PO SCH ×2 (10:29→20:59)
[2018-11-14] MEDS: METOPROLOL SUCC 50MG EXT REL TAB PO SCH (10:29)
[2018-11-14] MEDS: FUROSEMIDE 40 MG TAB PO SCH ×2 (10:30→16:31)
[2018-11-14] MEDS: PANTOprazole 40 MG TAB PO SCH (10:30)
[2018-11-14] MEDS: HEPARIN SOD 5,000 UNIT/0.5 ML VIAL SQ SCH ×2 (10:31→20:58)
--- NOTE | 2018-11-14 14:24 | Hospitalist Progress Note ---
Date of Service November 14, 2018 Assessment & Plan (1) Acute respiratory failure with hypoxia: Secondary to acute bronchitis/aspiration pneumonia. Now resolved and remains off oxygen Initially required BIPAP and/or oxymask early on in her stay. Has weaned to RA. Cont supportive care measures. Repeat cxr on 11/12 stable. She did receive an extra dose of Lasix the past couple of days and does seem to be clinically improved Cont steroids, nebs, etc. No wean on steroids today given persistent wheezing. (2) Aspiration pneumonitis: Ongoing. Certainly at risk of such due to large hiatal hernia, dementia process, etc. However, video swallow without aspiration, but does have moderate esophageal dysmotility and intrathoracic stomach with large hiatal hernia. I do believe that she has reflux and evidence of chronic aspiration with tree-in -bud opacities on CT scan of the chest. Remains on Zosyn-started on 11/10/18-today is day #5 -Will convert to p.o. Augmentin today to complete a 7-day course Speech therapy consult appreciated. Must be upright with eating and all recommendations as per speech therapy otherwise -Placed on p.o. Protonix and will continue this indefinitely to reduce reflux (3) Acute metabolic encephalopathy: Secondary to aspiration pneumonia. Resolved Cont to reinforce day/night cycle, avoid sedatives if possible, etc. Use atypical antipsychotic at HS as last resort. (4) Hiatal hernia with gastroesophageal reflux: large on imaging. Started on a daily PPI. certainly places her at high risk of aspiration. (5) Elevated troponin: myocardial demand ischemia in setting of acute resp failure & pneumonia. echo findings noted; no wall motion abnormalities. (6) Hypertension: control acceptable at this time -Continue furosemide, metoprolol (7) Dementia: could have Lewy-Body dementia given the hallucinations and parkinsonism. or, she could have Parkinson's disease with resulting dementia. either way she has advanced dementia by history. acute delirium has improved. (8) Chronic kidney disease with symptom management only, stage 3 (moderate): creatinine stable once again today (9) Hypokalemia: Replaced and is now normalized -Follow BMP given that we are giving extra Lasix again today (10) Acute on chronic diastolic heart failure: With grade 1 diastolic dysfunction on echocardiogram done this admission. With crackles on examination, improved with extra Lasix last 2 days -Continue with Lasix 40 mill grams p.o. twice daily for another day or 2 -Follow I's and O's, daily weights-was not done today she transferred units- ordered daily weights and strict I's and O's (11) DVT prophylaxis: heparin 5000 BID OT recommending SNF after d/c PT evaluation seems like she could potentially go home Spoke with the daughter and the patient. They are going to bring the patient home as she has 24/7 care at home and her desire is to be home with home health Hopefully will be ready for discharge in the next 1-2 days when wheezing is improved Subjective Patient reports she feels better overall. She is taking a nap. She feels stronger and less short of breath. She is not coughing as much. Review of Systems All systems reviewed & are unremarkable except as noted in HPI & below Physical Exam 2 Vital Signs (Past 24 Hours): Last Vital Signs Temp 36.3 C L 11/14/18 07:00 Pulse 70 11/14/18 11:22 Resp 18 11/14/18 11:22 BP 137/75 11/14/18 07:00 Pulse Ox 95 11/14/18 11:22 Constitutional: + thin (Lying in bed sleeping, but quickly wakes up and is very alert and answers questions appropriately); not ill appearing Eyes: PERRL, conjunctivae normal, anicteric sclerae ENMT: Ears: + hearing impairment Neck: trachea midline, no thyromegaly Respiratory: normal respiratory effort Auscultation: + crackles (In bibasilar region, with kyphosis) and + wheezes (Mild expiratory wheezes much improved from previous and bilateral middle and lower lung mccl[place]) Cardiovascular: RRR, no murmur, no edema Gastrointestinal (Abdomen): normal bowel sounds, soft, nontender, no hepatosplenomegaly Musculoskeletal: Extremities: extremities normal to inspection; no cyanosis and no clubbing Skin: no rashes, warm and dry Neurologic: moves all extremities and awake; no focal motor deficits Psychiatric: Orientation: alert, oriented to person and cooperative Results & Data Laboratory Results 11/14/18 Range/Units 05:27 Sodium 137 (136-145) mmol/L Potassium 4.1 (3.5-5.1) mmol/L Chloride 102 (98-107) mmol/L Carbon Dioxide 30 (21-32) mmol/L Anion Gap 5.0 (3-11) BUN 20 H (7-18) mg/dl Creatinine 0.88 (0.6-1.2) mg/dl Est Cr Clr Drug Dosing 36.6 ml/min Est GFR ( Amer) 71.9 Est GFR (Non-Af Amer) 62.1 BUN/Creatinine Ratio 22.4 H (10-20) Glucose 150 H (70-99) mg/dl Calcium 8.1 L (8.5-10.1) mg/dl Magnesium 2.2 (1.8-2.4) mg/dl Blood cultures remain no growth Urine culture negative _ (1) Hypertension Hypertension type: essential hypertension Qualified Code(s): I10 - Essential (primary) hypertension (2) Dementia Dementia type: unspecified type Alzheimer's disease onset: Dementia behavioral disturbance: without behavioral disturbance Qualified Code(s): F03.90 - Unspecified dementia without behavioral disturbance
[2018-11-14] MEDS: AMOXICILLIN/CLAVULANATE 875 MG TAB PO SCH (16:31)
[2018-11-14] MEDS: LORazepam 0.5 MG TAB PO SCH (20:58)
[2018-11-15] MEDS: methylPREDNISolone 40 MG in SYRINGE 0 ML IV SCH ×3 (01:02→16:22)
[2018-11-15] MEDS: CARBIDOPA/LEVODOP 10/100MG TAB PO SCH ×3 (05:41→20:38)
[2018-11-15 05:50] LABS: Basophils # (auto) 0.01 K/uL (0-0.2); Basophils % (auto) 0.1 %; Hematocrit (blood only) 43.6 % (37-47); Hemoglobin 13.6 g/dL (12.0-16.0); Immature Granulocytes # (auto) 0.37 K/uL (0.00-0.02); Immature Granulocytes % (auto) 3.3 %; Lymphocytes # (auto) 0.88 K/uL (1.2-3.4); Lymphocytes % (auto) 7.9 %; Mean Corpuscular Hgb Conc 31.2 g/dL (32-36); Mean Corpuscular Volume 88.3 fL (80-100); Mean Platelet Volume 11.1 fL (7.4-10.4); Monocytes # (auto) 0.32 K/uL (0.11-0.59); Monocytes % (auto) 2.9 %; Neutrophils # (auto) 9.55 K/uL (1.4-6.5); Neutrophils % (auto) 85.8 %; Platelet Count 250 K/uL (130-400); RDW Coefficient of Variation 15.4 % (11.5-14.5); Red Blood Count 4.94 M/uL (4.2-5.4); White Blood Count 11.13 K/uL (4.8-10.8)
[2018-11-15 06:17] LABS: BUN Creatinine Ratio 32.3 (10-20); Calcium 8.1 mg/dl (8.5-10.1); Est GFR (African American) 94.8; Est GFR (Non-African American) 81.8; Magnesium 2.4 mg/dl (1.8-2.4)
[2018-11-15] MEDS: FORMOTEROL 20 MCG/2 ML VIAL NEB SCH ×2 (07:05→19:20)
[2018-11-15] MEDS: ALBUT/IPRATROP 3MG/0.5MG NEB 3 ML VIAL NEB SCH ×3 (07:05→15:33)
[2018-11-15] MEDS: PANTOprazole 40 MG TAB PO SCH (08:09)
[2018-11-15] MEDS: guaiFENesin 600 MG TABCR PO SCH ×2 (08:09→20:37)
[2018-11-15] MEDS: METOPROLOL SUCC 50MG EXT REL TAB PO SCH (08:09)
[2018-11-15] MEDS: FUROSEMIDE 40 MG TAB PO SCH ×2 (08:09→16:23)
[2018-11-15] MEDS: AMOXICILLIN/CLAVULANATE 875 MG TAB PO SCH ×2 (08:10→16:22)
[2018-11-15] MEDS: HEPARIN SOD 5,000 UNIT/0.5 ML VIAL SQ SCH ×2 (08:11→20:37)
--- NOTE | 2018-11-15 17:20 | Hospitalist Progress Note ---
Date of Service November 15, 2018 Assessment & Plan (1) Acute respiratory failure with hypoxia: Secondary to acute bronchitis/aspiration pneumonia. Now resolved and remains off oxygen, doing very well Initially required BIPAP and/or oxymask early on in her stay. Repeat cxr on 11/12 stable. She did receive twice daily Lasix the past several days and does seem to be clinically improved with that as well Convert IV Solu-Medrol to p.o. prednisone 40 mill grams daily for tomorrow -Make nebs as needed rather than scheduled (2) Aspiration pneumonitis: Resolved Certainly at risk of such due to large hiatal hernia, dementia process, etc. However, video swallow without aspiration, but does have moderate esophageal dysmotility and intrathoracic stomach with large hiatal hernia. I do believe that she has reflux and evidence of chronic aspiration with tree-in -bud opacities on CT scan of the chest. Received Zosyn times 5 days, now on Augmentin-day #6 of 7 of antibiotic course Speech therapy consult appreciated. Must be upright with eating and all recommendations as per speech therapy otherwise -Placed on p.o. Protonix and will continue this indefinitely to reduce reflux (3) Acute metabolic encephalopathy: Secondary to aspiration pneumonia. Resolved Cont to reinforce day/night cycle, avoid sedatives if possible, etc. Use atypical antipsychotic at HS as last resort. (4) Hiatal hernia with gastroesophageal reflux: large on imaging. Started on a daily PPI. certainly places her at high risk of aspiration. (5) Elevated troponin: myocardial demand ischemia in setting of acute resp failure & pneumonia. echo findings noted; no wall motion abnormalities. (6) Hypertension: control acceptable at this time -Continue furosemide, metoprolol (7) Dementia: could have Lewy-Body dementia given the hallucinations and parkinsonism. or, she could have Parkinson's disease with resulting dementia. either way she has advanced dementia by history. acute delirium has improved. (8) Chronic kidney disease with symptom management only, stage 3 (moderate): creatinine stable here (9) Hypokalemia: Replaced and is now normalized (10) Acute on chronic diastolic heart failure: With grade 1 diastolic dysfunction on echocardiogram done this admission. With crackles on examination, resolved with extra Lasix last 3 days -Continue with Lasix 40 mill grams p.o. twice daily for today and then go back to once a day for tomorrow -Follow I's and O's, daily weights-weight is down half a kilogram today from yesterday (11) DVT prophylaxis: heparin 5000 BID OT recommending SNF after d/c PT evaluation seems like she could potentially go home Spoke with the daughter and the patient. They are going to bring the patient home as she has 24/7 care at home and her desire is to be home with home health She should definitely be ready for discharge to home tomorrow-I discussed with her daughter Marcelle on the phone today who is agreeable to bring her home tomorrow. Subjective Patient doing very well today. Nursing reports she is up and around without much assistance. She is tolerating her meals. The patient denies any problems and asks "why did I have to stay here so long?" Physical Exam 2 Vital Signs (Past 24 Hours): Last Vital Signs Temp 36.6 C 11/15/18 15:34 Pulse 64 11/15/18 15:34 Resp 18 11/15/18 15:34 BP 119/64 11/15/18 15:34 Pulse Ox 94 11/15/18 15:34 Constitutional: + thin; not ill appearing Eyes: PERRL, conjunctivae normal, anicteric sclerae ENMT: Ears: + hearing impairment Neck: trachea midline, no thyromegaly Respiratory: normal respiratory effort Auscultation: no crackles (Much improved from previous), no rhonchi and no wheezes Cardiovascular: RRR, no murmur, no edema Gastrointestinal (Abdomen): normal bowel sounds, soft, nontender, no hepatosplenomegaly Musculoskeletal: Extremities: extremities normal to inspection; no cyanosis and no clubbing Skin: no rashes, warm and dry Neurologic: moves all extremities and awake; no focal motor deficits Motor/ Sensory: + tremor (Resting tremor in bilateral hands) Psychiatric: Orientation: alert, oriented to person and cooperative Results & Data Laboratory Results 11/15/18 11/15/18 Range/Units 05:21 05:21 WBC 11.13 H (4.8-10.8) K/uL RBC 4.94 (4.2-5.4) M/uL Hgb 13.6 (12.0-16.0) g/dL Hct 43.6 (37-47) % MCV 88.3 (80-100) fL MCH 27.5 (25-34) pg MCHC 31.2 L (32-36) g/dL RDW Std Deviation 49.0 H (36.4-46.3) fL RDW Coeff of Tamera 15.4 H (11.5-14.5) % Plt Count 250 (130-400) K/uL MPV 11.1 H (7.4-10.4) fL Immature Gran % (Auto) 3.3 % Neut % (Auto) 85.8 % Lymph % (Auto) 7.9 % Isabela % (Auto) 2.9 % Eos % (Auto) 0.0 % Baso % (Auto) 0.1 % Immature Gran # (Auto) 0.37 H (0.00-0.02) K/uL Neut # (Auto) 9.55 H (1.4-6.5) K/uL Lymph # (Auto) 0.88 L (1.2-3.4) K/uL Isabela # (Auto) 0.32 (0.11-0.59) K/uL Eos # (Auto) 0.00 (0-0.5) K/uL Baso # (Auto) 0.01 (0-0.2) K/uL Sodium 137 (136-145) mmol/L Potassium 4.0 (3.5-5.1) mmol/L Chloride 103 (98-107) mmol/L Carbon Dioxide 31 (21-32) mmol/L Anion Gap 3.0 (3-11) BUN 23 H (7-18) mg/dl Creatinine 0.70 (0.6-1.2) mg/dl Est Cr Clr Drug Dosing 46.0 ml/min Est GFR ( Amer) 94.8 Est GFR (Non-Af Amer) 81.8 BUN/Creatinine Ratio 32.3 H (10-20) Glucose 149 H (70-99) mg/dl Calcium 8.1 L (8.5-10.1) mg/dl Magnesium 2.4 (1.8-2.4) mg/dl Diagnostic Findings Blood cultures negative _ (1) Dementia Alzheimer's disease onset: Dementia behavioral disturbance: without behavioral disturbance Dementia type: unspecified type Qualified Code(s): F03.90 - Unspecified dementia without behavioral disturbance (2) Hypertension Hypertension type: essential hypertension Qualified Code(s): I10 - Essential (primary) hypertension
[2018-11-15] MEDS ORDERED: ALBUT/IPRATROP 3MG/0.5MG NEB 3 ML VIAL NEB PRN (17:43)
[2018-11-15] MEDS: LORazepam 0.5 MG TAB PO SCH (20:36)
[2018-11-16] MEDS: CARBIDOPA/LEVODOP 10/100MG TAB PO SCH ×2 (06:16→13:41)
[2018-11-16] MEDS: FORMOTEROL 20 MCG/2 ML VIAL NEB SCH (07:49)
[2018-11-16] MEDS: AMOXICILLIN/CLAVULANATE 875 MG TAB PO SCH ×2 (08:21→16:18)
[2018-11-16] MEDS: FUROSEMIDE 40 MG TAB PO SCH ×2 (08:21→16:18)
[2018-11-16] MEDS: PANTOprazole 40 MG TAB PO SCH (08:21)
[2018-11-16] MEDS: METOPROLOL SUCC 50MG EXT REL TAB PO SCH (08:21)
[2018-11-16] MEDS: guaiFENesin 600 MG TABCR PO SCH (08:21)
[2018-11-16] MEDS: HEPARIN SOD 5,000 UNIT/0.5 ML VIAL SQ SCH (08:23)
[2018-11-16] MEDS ORDERED: predniSONE 20 MG TAB PO SCH (09:00)
--- NOTE | 2018-11-16 16:03 | Discharge Summary ---
Date of Service November 16, 2018 Admission HPI Per Admitting Provider Ms. Palacios is a 78 y/o female with PMHx of HTN and Parkinsons who presents to the ED c/o wheezing and SOB starting on Friday. HPI largely obtained from the daughter at bedside as patient is on BiPAP. Daughter states she started getting ill on [place]. Mostly complaining of wheezing and shortness of breath. She does occasionally have a productive cough of yellow sputum. She has also complained of nasal congestion during this time. They deny that she has been complaining of fever/chills. Due to not seeing much improvement they presented to [facility]. They were told this was likely a viral pneumonia and prescribed a Ventolin inhaler, Prednisone, and a Zpak. Daughter states she really hasn't noticed much change and feels that she looks more ill and the wheezing is progressive. They also note she appeared to be hallucinating last night and talking about the past, as well seems to be more talkative then normal. Possibly induced by steroids/albuterol? Family also notes she has insomnia and her night time ativan no longer helps. Patient feels that her breathing may be a bit better and does not like the BiPAP machine. She is normally not on oxygen therapy at home. Family denies issues with water retention or swelling of the legs. She is on Lasix for management. She has a mildly elevated troponin of 0.057. She denies CP. No evidence of ischemia on EKG. She is afebrile and without leukocytosis. Principal Diagnosis Aspiration PNA, Acute metabolic encephalopathy, acute hypoxic respiratory failure Discharge Exam Constitutional + thin; not ill appearing Eyes PERRL, conjunctivae normal, anicteric sclerae ENMT Ears: + hearing impairment Neck trachea midline, no thyromegaly Respiratory normal respiratory effort Auscultation: no crackles (Much improved from previous), no rhonchi and no wheezes Cardiovascular RRR, no murmur, no edema Gastrointestinal (Abdomen) normal bowel sounds, soft, nontender, no hepatosplenomegaly Musculoskeletal Extremities: extremities normal to inspection; no cyanosis and no clubbing Skin no rashes, warm and dry Neurologic moves all extremities and awake; no focal motor deficits Motor/Sensory: + tremor (Resting tremor in bilateral hands) Psychiatric Orientation: alert, oriented to person and cooperative; + not oriented to place and + not oriented to time Discharge Data Allergies Allergy/AdvReac Type Severity Reaction Status Date / Time No Known Allergies Allergy Unverified 11/20/18 13:44 Consultations 11/08/18 13:34 ED Decision to Admit Stat 11/08/18 15:55 Consult Case Management - Discharge Planning Routine Procedures Performed ECHO Ordered Studies 11/12/18 13:45 FL video swallow Routine 11/09/18 10:52 CT angio chest PE protocol Routine CXR x 3 Hospital Course (1) Acute respiratory failure with hypoxia: Secondary to acute bronchitis/aspiration pneumonia. Now resolved and remains off oxygen, doing very well Initially required BIPAP and/or oxymask early on in her stay. Received bronchodilator nebs Repeat cxr on 11/12 stable. She did receive twice daily Lasix the past several days and does seem to be clinically improved with that as well Convert IV Solu-Medrol to p.o. prednisone 40 mill grams daily and taper down after discharge (2) Aspiration pneumonitis: Resolved Certainly at risk of such due to large hiatal hernia, dementia process, etc. However, video swallow without aspiration, but does have moderate esophageal dysmotility and intrathoracic stomach with large hiatal hernia. I do believe that she has reflux and evidence of chronic aspiration with tree-in -bud opacities on CT scan of the chest. Received Zosyn times 5 days, then Augmentin for a total of 7 days of antibiotic course Speech therapy consult appreciated. Must be upright with eating and all recommendations as per speech therapy otherwise -Placed on p.o. Protonix and will continue this indefinitely to reduce reflux (3) Acute metabolic encephalopathy: Secondary to aspiration pneumonia. Resolved Cont to reinforce day/night cycle, avoid sedatives if possible, etc. (4) Hiatal hernia with gastroesophageal reflux: large on imaging. Started on a daily PPI. certainly places her at high risk of aspiration. (5) Elevated troponin: myocardial demand ischemia in setting of acute resp failure & pneumonia. echo findings noted; no wall motion abnormalities. (6) Hypertension: control acceptable at this time -Continue furosemide, metoprolol (7) Dementia: could have Lewy-Body dementia given the hallucinations and parkinsonism. or, she could have Parkinson's disease with resulting dementia. either way she has advanced dementia by history. acute delirium has improved. (8) Chronic kidney disease with symptom management only, stage 3 (moderate): creatinine stable here (9) Hypokalemia: Replaced and is now normalized (10) Acute on chronic diastolic heart failure: With grade 1 diastolic dysfunction on echocardiogram done this admission. With crackles on examination, resolved with extra Lasix last 3 days -Continue with Lasix 40 mill grams p.o. once a day -Follow daily weights at home, low Na+ diet (11) DVT prophylaxis: heparin 5000 BID SQ provided OT recommending SNF after d/c PT evaluation seems like she could potentially go home Spoke with the daughter and the patient. They are going to bring the patient home as she has / care at home and her desire is to be home with home health She is ready for discharge to home Total Time Total Time Spent Total Time Spent (In Minutes): >30 min Total Time Includes: Examination of the Patient, Discharge Planning and Medication Reconciliation Discharge Plan Discharge Items Patient Disposition: Home - Self-Care Reason For Visit: ACUTE HYPOXIC RESPIRATORY FAILURE Discharge Diagnosis: Aspiration pneumonia, hypoxia Condition: Good Discharge Goals: Decrease discomfort, Diagnostic testing, Improve disease control, Learn about illness and Therapeutic intervention Activity: Resume your previous activity Lifting: Gradually increase as tolerated Bathing: No limitations Exercise/Sports: As tolerated Non-emergency contact: Primary Care Provider Call non-emergency contact if: you have any medication questions, your symptoms worsen, you have a fever and your temperature is above 101 Follow-up/Referrals: Brigette Sim PA-C [Primary Care Provider] - 11/20/18 11:00 am (Please, follow up with Brigette Sim PA-C on FridayNovember 20 at 11:00 am. *If you need to change this appointment, call the office at [phone].) Diet: Heart Healthy Add Provider Instructions: You were admitted with aspiration pneumonia that comes from bad acid reflux. Your stomach goes up into your chest quite a bit which causes you to spill acid into your lungs. You were placed on an antacid called pantoprazole to help reduce the chances of this happening. You were treated with antibiotics and you need to take 1 more tablet of amoxicillin/clavulanic acid this evening and then you are done. Please finish out the course of prednisone for your wheezing and you can use your inhaler as needed for wheezing or cough. Please follow-up with your primary care physician within 1-2 weeks as scheduled for you. Prescriptions: New pantoprazole 40 mg Tablet,Delayed Release (Dr/Ec) 40 mg PO QAM Qty: 30 RF: 0 prednisone 10 mg tablet 40 mg PO DAILY Qty: 10 RF: 0 guaifenesin [Mucinex] 600 mg Tablet Extended Release 12hr 1,200 mg PO Q12 Qty: 14 RF: 0 albuterol sulfate 90 mcg/actuation HFA aerosol inhaler 2 inha INH Q6H PRN (Reason: shortness of breath or wheezing) Qty: 18 RF: 0 Continue metoprolol succinate 50 mg Tablet Extended Release 24 Hr 50 mg PO DAILY RF: 0 albuterol sulfate [Ventolin HFA] 90 mcg/actuation Hfa Aerosol Inhaler 2 puff INHALATION Q4H RF: 0 carbidopa-levodopa 10-100 mg Tablet,Disintegrating 1 tab PO DAILY RF: 0 Changed furosemide 40 mg Tablet 40 mg PO BID Qty: 0 RF: 0 lorazepam 0.5 mg Tablet 0.25 mg PO HS Qty: 0 RF: 0 Discontinued azithromycin [Zithromax Z-Joe] 250 mg Tablet 250 mg PO DIRECTED RF: 0 prednisone 20 mg Tablet 20 mg PO DAILY RF: 0 Visit Report Forms: My [facility] Portal Stand-Alone Forms: [facility] Discharge Orders: Discharge Order (Routine); Ordered 11/16/18 Ordered By: Ana Owen Admission Data Admit Date/Time: 11/08/18 14:30 Attending Provider: Ana Owen Admit Provider: Porfirio Meléndez Primary Care Provider: Brigette Sim Other Providers: Porfirio Meléndez ; Yaniv Drake Service: Medical Other Interventions: Discharge Summary Assessment (RN) Last Done: 11/16/18 16:04 Pending Studies at Discharge: No DC Date/Time DO NOT enter until pt leaves facility: 11/16/18 16:32
--- NOTE | 2018-11-18 07:44 | Coding Query ---
CODING QUERY To promote full compliance with coding requirements relating to patient care, provider participation is requested in all cases of fabric and accessories estimator uncertainty. Please assist us with the question(s) below: Coding Question(s): Patient admitted with acute respiratory failure with hypoxia in setting of Parkinson's Dementia. 11/13 progress note :" video swallow without aspiration, risk of such. Persistent crackles , maybe with pneumonia or volume overload". Discharge summary documents aspiration pneumonia / acute bronchitis. Please check below the phrase that describes the reason for admission. Thank you ! Henrique Mendez INSURANCE SPECIALIST [facility] Physician's Response(s): ____x____ Patient was treated for aspiration pneumonia ____x____ Patient was treated for acute bronchitis Cannot clinically correlate if patient was treated for aspiration pneumonia Cannot clinically correlate if patient was treated for acute bronchitis Other / Please document: Principal Diagnosis: "that condition established after study, to be chiefly responsible for occasioning the admission of the patient to the hospital for care." Co-Existing Principal Diagnosis: "when two or more diagnoses equally meet the criteria for principal diagnosis as determined by the circumstances of admission , diagnostic work up, and/or therapy provided, and the Alphabetic Index, Tabular List, or another coding guideline does not provide sequencing direction , any one of the diagnoses may be sequenced first." "When the physician has documented what appears to be a current diagnosis in the body of the record, but has not included the diagnosis in the final diagnostic statement, the physician should be asked whether the diagnosis should be added." (Source Coding Clinic 2 QTR90. p3-4) GURDEEP
== END 2018-11-16 16:32 | disposition home or self-care (01) | DRG 202 ==
LOC: ED 11:31 → 2N 14:30 → SUATTDRO 14:30 → 2N 15:24 → 2S 11-09 01:37 → 4E 11-13 12:20